=== PATIENT | male | born 1940 | race Caucasian/White ===

== ENCOUNTER 2017-03-13 08:18 | Day surgery (SDC) | payer MEDICARE ==
[~2017-03-13 08:18] MED LIST: Buffered Lidocaine 0.9% SYRIN* 5 ML/SYR SYRINGE INTRADERM ONE; Dexamethasone IV* 4 MG/ML 1 ML (4 MG) IV SLOW PU ONE; Famotidine IV* 10 MG/ML 2 ML (20 mg) IV ONE
[2017-03-13] MEDS ORDERED: Famotidine IV* 10 MG/ML 2 ML (20 mg) ONE (09:06)
[2017-03-13] MEDS ORDERED: Dexamethasone IV* 4 MG/ML 1 ML (4 MG) ONE (09:06)
[2017-03-13] MEDS ORDERED: EPINEPHrine AMP 1 MG/ML ONE (09:50)
[2017-03-13] MEDS ORDERED: Midazolam* 1 MG/ML 2 ML VIAL (2 MG) ONE (10:01)
[2017-03-13] MEDS ORDERED: fentaNYL* 50 MCG/ML 2 ML VIAL (100 MCG VIAL) ONE (10:01)
[2017-03-13] MEDS ORDERED: Propofol* 10 MG/ML 20 ML BTL IV PUSH ONE (10:34)
[2017-03-13] MEDS ORDERED: Ondansetron INJ* 2 MG/ML VIAL ONE (10:34)
[2017-03-13] MEDS ORDERED: fentaNYL* 50 MCG/ML 2 ML VIAL (100 MCG VIAL) IV PRN (10:50)
[2017-03-13 11:39] VITALS: BP 139/71
--- NOTE | 2017-03-13 20:30 | OP ---
OPERATIVE REPORT: DATE OF OPERATION: 03/13/17 - SDS DATE OF : 40 SURGEON: Bert Spencer MD MICROELECTRONICS TECHNICIAN: None. ANESTHESIOLOGIST: Gregg Murphy MD ANESTHESIA: General. PRE-OP DIAGNOSIS: Neoplasm, uncertain behavior, pharynx. POST-OP DIAGNOSIS: Neoplasm, uncertain behavior, pharynx. OPERATIVE PROCEDURE: Direct laryngoscopy with biopsies. 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 A couple of weeks ago, he developed a foreign body sensation in the left side of the throat. Inspection with a fiberoptic laryngoscope in the office demonstrated a lesion, which appeared to be in the left tongue base. Given his history, the decision was made to bring the patient to the operating room for biopsy. ESTIMATED BLOOD LOSS: Less than 10 cc. SPECIMEN: Biopsies, lateral wall of left piriform sinus. DESCRIPTION OF PROCEDURE: He was brought to the operating room on 03/13/17. General anesthesia was induced and an oral endotracheal tube was placed. The patient was draped. The table turned and a time-out was performed. The patient 's upper gums were protected with a moist Ray-Juan. A Adrianna laryngoscope was used to perform a diagnostic laryngoscopy. There was exudate covering a relatively flat ulcerative lesion of the left lateral hypopharyngeal wall, essentially at the superior portion of the piriform sinus. This was approximately 1.5 cm in greatest dimension. Two biopsies of this area were taken with a cup forceps. Epinephrine- soaked pledgets were then applied to control bleeding. Once the bleeding had stopped, the patient was returned to the care of the anesthesiologist. He was extubated and delivered to the PACU in stable condition. [id number]/CPS #: [id number] MTDD
== END 2017-03-13 11:35 | disposition home or self-care (01) ==
LOC: OR 08:18
PROVIDERS: ATTEND Otolaryngology
DX: C12 Malignant neoplasm of pyriform sinus (principal); I10 Essential (primary) hypertension; I35.9 Nonrheumatic aortic valve disorder, unspecified; E78.5 Hyperlipidemia, unspecified; N40.0 Benign prostatic hyperplasia without lower urinary tract symptoms; K21.9 Gastro-esophageal reflux disease without esophagitis; Z88.8 Allergy status to other drugs, medicaments and biological substances; Z87.891 Personal history of nicotine dependence
CPT/HCPCS: 88305; J0171; J1100; J2250; J2405; J2704; J3010

== ENCOUNTER → 2019-03-16 06:40 | Day surgery (SDC) | payer MEDICARE ==
[~2019-03-16 06:40] MED LIST changes: +Bacitracin OINTMENT* 0.5% 0.5 oz TUBE ONE; -Buffered Lidocaine 0.9% SYRIN* 5 ML/SYR SYRINGE INTRADERM ONE; +Bupivacaine 0.25% W/EPI* 10 ML SDV ONE; -Dexamethasone IV* 4 MG/ML 1 ML (4 MG) IV SLOW PU ONE; -Famotidine IV* 10 MG/ML 2 ML (20 mg) IV ONE; +Midazolam* 1 MG/ML 2 ML VIAL (2 MG) ONE; +Naloxone* 0.4 MG/ML 1 ML VIAL IV PRN; +Propofol* 10 MG/ML 20 ML BTL ONE; +fentaNYL* 50 MCG/ML 2 ML VIAL (100 MCG VIAL) ONE
[2019-03-16 10:30] VITALS: BP 141/92
--- NOTE | 2019-03-16 15:22 | OP ---
DATE OF OPERATION: 03/16/19 - [facility] DATE OF : 40 SURGEON: Bert Spencer MD DIRECTOR IMAGING: None. ANESTHESIA: Local MAC. PRE-OP DIAGNOSIS: Neoplasm, uncertain behavior of lower lip. POST-OP DIAGNOSIS: Malignant neoplasm, lower lip. OPERATIVE PROCEDURE: Wedge resection, lower lip lesion. INDICATIONS: This is a 78-year-old male who has had a nonhealing lesion of the lower lip for several years. It has been treated topically by Dermatology, although had never been biopsied. It had become larger and more painful and started to develop some central ulceration with raised borders. I saw him in the office and it was clear that this was behaving consistent with a neoplastic process, and so the decision was made to bring him to the operating room for conservative wedge excision and frozen section diagnosis and marginal control. DESCRIPTION OF PROCEDURE: On 03/16/19, the patient was brought to the operating room. The patient was given some intravenous sedation by the anesthesiologist. He was draped and a time out was performed. The skin of the lip itself was cleansed with alcohol, marked and approximately 3 cc of 0.25% Marcaine with 1:200,000 epinephrine was infiltrated into the lower lip. Once adequate time had been allotted for vasoconstriction, the procedure was begun. A wedge shaped through and through excisional specimen was obtained, 15-blade was used in addition to an iris scissors and a fine bipolar forceps. Labial artery was identified, ligated with 4- 0 silk. Hemostasis of the orbicularis muscle and other small bleeders was obtained with bipolar cautery. Once the specimen was removed, a marking suture was placed on the right vermilion border. The specimen itself was approximately 1.5 cm in width at the lip margin and extended inferiorly almost 2 cm to the apex of the wedge. The specimen was sent to pathology, while the frozen section was being run, the wound was then closed in layers, 3-0 Vicryl was used to reapproximate the muscle , 4-0 Vicryl was used to close dermis and submucosa. The mucosa on the inner aspect of the lip up to the vermilion was closed with 4-0 Vicryl and the skin was closed with 4-0 nylon. Bacitracin ointment was applied. The frozen section was consistent with squamous cell carcinoma with clear margins and the procedure was terminated. The patient was then returned to the PACU in stable condition. [id number]/[facility] #: [id number] ELHAM
== END | disposition home or self-care (01) ==
LOC: OR 06:40
PROVIDERS: ATTEND Otolaryngology
DX: C44.02 Squamous cell carcinoma of skin of lip (principal); I10 Essential (primary) hypertension; E78.5 Hyperlipidemia, unspecified; I35.8 Other nonrheumatic aortic valve disorders; R94.31 Abnormal electrocardiogram [ECG] [EKG]; K21.9 Gastro-esophageal reflux disease without esophagitis; J44.9 Chronic obstructive pulmonary disease, unspecified; Z87.891 Personal history of nicotine dependence
CPT/HCPCS: 88305; 88331; 88332; A9270-GY; J2250; J2704; J3010

== ENCOUNTER 2019-08-05 09:46 | Day surgery (SDC) | payer MEDICARE ==
[~2019-08-05 09:46] MED LIST changes: -Bacitracin OINTMENT* 0.5% 0.5 oz TUBE ONE; +Buffered Lidocaine 1% SYRIN 1 ml INTRADERM ONE; -Bupivacaine 0.25% W/EPI* 10 ML SDV ONE; +DiMENhydriNATE IV 50 mg/ml 1 ml VIAL IV PUSH PRN; +Famotidine IV 10 MG/ML 2 ml VIAL (20 mg) IV ONE; +HYDROmorphone 1 MG/1 ML SYRINGE IV PRN; +Lactated Ringers 1000 ml BAG 1,000 ML IV SCH; +Levalbuterol 0.63MG/3ML NEB UNIT OF USE INH ONE; +Levalbuterol 0.63MG/3ML NEB UNIT OF USE INH PRN; -Midazolam* 1 MG/ML 2 ML VIAL (2 MG) ONE; +Naloxone 0.4 mg VIAL 0.4 mg/ml 1 ml VIAL IV PRN; -Naloxone* 0.4 MG/ML 1 ML VIAL IV PRN; +Ondansetron ODT 4 mg TAB 4 MG TAB PO ONE; +Prochlorperazine 5 mg/ml 2 ml VIAL (10 mg) IV PRN; -Propofol* 10 MG/ML 20 ML BTL ONE; +fentaNYL 100 mcg/2 ml 50 MCG/ML VIAL IV PRN; -fentaNYL* 50 MCG/ML 2 ML VIAL (100 MCG VIAL) ONE
[2019-08-05] MEDS ORDERED: Ondansetron ODT 4 mg TAB 4 MG TAB ONE (10:33)
[2019-08-05] MEDS ORDERED: Levalbuterol 0.63MG/3ML NEB UNIT OF USE INH ONE ×2 (10:33→11:34)
[2019-08-05] MEDS ORDERED: Famotidine IV 10 MG/ML 2 ml VIAL (20 mg) ONE (10:34)
[2019-08-05] MEDS ORDERED: Buffered Lidocaine 1% SYRIN 1 ml INTRADERM ONE (10:34)
[2019-08-05] MEDS ORDERED: Oxymetazoline 0.05% NASAL SPR 15 ML BTL ONE (10:50)
[2019-08-05] MEDS ORDERED: Lidocaine 4% TOPICAL 50 ML TOP.SOLN ONE (10:50)
[2019-08-05] MEDS ORDERED: Ketamine HCL 50 mg/ml 10 ml VIAL (500 MG) ONE (10:52)
[2019-08-05] MEDS ORDERED: Rocuronium 50 mg VIAL 10 mg/ml 5 ml VIAL (50 mg) ONE (10:52)
[2019-08-05] MEDS ORDERED: fentaNYL 100 mcg/2 ml 50 MCG/ML VIAL ONE ×2 (10:52→12:19)
[2019-08-05] MEDS ORDERED: Midazolam 2 mg/2 ml VIAL 1 mg/ml 2 ml VIAL (2 mg) ONE (10:52)
[2019-08-05] MEDS ORDERED: Sugammadex 500 MG/5 ML 5 ml VIAL IV PUSH ONE (11:18)
[2019-08-05] MEDS ORDERED: Lidocaine 2% PF 5 ML VIAL ONE (11:18)
[2019-08-05] MEDS ORDERED: Propofol 10 MG/ML 20 ML BTL ONE (11:18)
[2019-08-05] MEDS ORDERED: Phenylephrine 40 mcg/mL 10mL (400mcg) SYRINGE ONE (11:18)
[2019-08-05] MEDS ORDERED: Labetalol IV 5 MG/ML 20 ml VIAL ONE (11:19)
[2019-08-05] MEDS ORDERED: Flumazenil 0.5 mg/5 ml 0.1 MG/ML 5 ml VIAL ONE (11:25)
[2019-08-05 12:28] VITALS: BP 176/98
[2019-09-06 13:21] LABS: Case Number CR-20-13117
== END 2019-08-05 13:01 | disposition home or self-care (01) ==
LOC: OR 09:46
PROVIDERS: ATTEND Otolaryngology
DX: C13.9 Malignant neoplasm of hypopharynx, unspecified (principal); C12 Malignant neoplasm of pyriform sinus; C00.4 Malignant neoplasm of lower lip, inner aspect; R07.0 Pain in throat; I10 Essential (primary) hypertension; K21.9 Gastro-esophageal reflux disease without esophagitis; E78.5 Hyperlipidemia, unspecified; M19.90 Unspecified osteoarthritis, unspecified site; J44.9 Chronic obstructive pulmonary disease, unspecified; Z85.828 Personal history of other malignant neoplasm of skin; Z87.891 Personal history of nicotine dependence

== ENCOUNTER 2019-09-02 10:07 | Emergency (ER) | payer MEDICARE ==
[2019-09-02] MEDS ORDERED: NS 0.9% 1000 ML** 1,000 ML IV ONE (10:09)
[2019-09-02 10:21] VITALS: BP 120/61
--- NOTE | 2019-09-02 10:25 | UC ---
Dizzy HPI HPI Summary: 79 yo man transferred from MRI department; had a syncopal episode after being taken out of the MRI. He had received gadolinium at 9:40 am with no immediate reaction. Elysian fine during the scan, then became syncopal when he sat out after coming out of the scanner at about 10 am. Nursing staff found him to be hypotensive. landscape management technician states that he felt fine after the gadolinium was given, and it was only upon coming to a seated position that he fainted. He denies a history of cardiac disease or faints. States that he was having the MRI for evaluation of dysphagia, and review of his chart shows that he is having an evaluation of a nodule. 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 - History Of Current Complaint Stated Complaint: DIZZY Time Seen by Provider: 09/02/19 10:09 Hx Obtained From: Patient Onset/Duration: Sudden Onset Timing: Intermittent Episode Lasting Severity Initially: Moderate Severity Currently: Moderate Character: Lightheaded, Weak Aggravating Factor(s): Position Change Alleviating Factor(s): Rest Associated Signs And Symptoms: Positive: Negative - Risk Factors Cardiac Risk Factors: Hypertension CVA Risk Factor: Hypertension - Allergies/Home Medications Allergies/Adverse Reactions: Allergies Allergy/AdvReac Type Severity Reaction Status Date / Time No Known Allergies Allergy Verified 09/02/19 10:12 Home Medications: Home Medications Amlodipine Besylate [Norvasc-] 10 mg PO QAM 07/30/16 [History Confirmed 08/05/19 ] Leflunomide (NF) [Arava] 20 mg PO QAM 07/30/16 [History Confirmed 08/05/19] Levothyroxine TAB* [Synthroid TAB*] 88 mcg PO QAM 07/30/16 [History Confirmed ] Mirtazapine TAB* [Remeron TAB*] 15 mg PO BEDTIME 07/30/16 [History Confirmed ] Telmisartan 80 mg PO QAM 07/30/16 [History Confirmed 08/05/19] Triamterene/HCTZ 37.5-25 MG* [Dyazide CAP*] 1 cap PO QAM 07/30/16 [History Confirmed 08/05/19] hydrALAZINE TAB* [Apresoline TAB*] 2 tab PO BID 07/30/16 [History Confirmed ] predniSONE 5 mg TAB [Deltasone TAB*] 5 mg PO BEDTIME 07/30/16 [History Confirmed 08/05/19] Atorvastatin* [Lipitor*] 40 mg PO QAM 03/13/17 [History Confirmed 08/05/19] Fexofenadine HCl [Allergy 24-Hr] 180 mg PO QAM 03/13/17 [History Confirmed 08/04] Metoprolol Tartrate TAB* [Lopressor TAB*] 100 mg PO BID 03/13/17 [History Confirmed 08/05/19] Omeprazole CAP (NF) [Prilosec CAP* 20 MG] 20 mg PO QAM 03/13/17 [History Confirmed 08/05/19] Tamsulosin CAP* [Flomax CAP*] 0.4 mg PO QPM 03/13/17 [History Confirmed 08/05/19 ] Tramadol HCl [Ultram] 50 mg PO QAM 03/13/17 [History Confirmed 08/05/19] PMH/Surg Hx/FS Hx/Imm Hx - Additional Past Medical History Additional PMH: former smoker Previously Healthy: No Cardiovascular History: Hypertension GI/ History: Other - BPH Neurological History: Other - Surgical History Surgical History: Yes Surgery Procedure, Year, and Place: THROAT BIOPSY - 5 YEARS AGO. REMOVAL CANCER FROM THE LIP-2019 - Family History Known Family History: Positive: Unknown - not obtained due to patient unwillingness to stay. - Social History Occupation: Employed Part-time - still drives for [employer] Alcohol Use: None Substance Use Type: None Smoking Status (MU): Former Smoker Amount Used/How Often: 1/2 PPD X 1.5 YEARS Length of Time of Smoking/Using Tobacco: 1.5 YEARS Have You Smoked in the Last Year: No When Did the Patient Quit Smoking/Using Tobacco: 60 YEARS AGO Review of Systems All Other Systems Reviewed And Are Negative: Yes Constitutional: Positive: Fatigue Skin: Positive: Negative Eyes: Positive: Negative ENT: Positive: Negative Respiratory: Positive: Negative Cardiovascular: Positive: Other - hx of hypertension Gastrointestinal: Positive: Negative Genitourinary: Positive: Negative Motor: Positive: Weakness Neurovascular: Positive: Negative Musculoskeletal: Positive: Negative Neurological/Mental Status: Positive: Weakness. Negative: Headache Psychological: Positive: Negative Is Patient Immunocompromised?: No Physical Exam Triage Information Reviewed: Yes Appearance: Ill-Appearing - looks pale and unwell, Other: - Alert and oriented. Eyes: Positive: Conjunctiva Clear ENT Exam: Other - tongue midline, husky voice. Neck: Positive: Supple, Nontender, No Lymphadenopathy Respiratory: Positive: Lungs clear, Normal breath sounds Cardiovascular: Positive: RRR, No Murmur Abdomen Description: Positive: Nontender, No Organomegaly Musculoskeletal Exam: Other - grossly normal Neurological Exam: Other - alert, oriented, no sided weakness Neurological: Positive: Muscle Tone Normal Psychological Exam: Other - vague historian, poor eye contact, repeatedly states that he has to leave. Skin Exam: Other - pale conjunctiva Diagnostics - EKG Cardiac Rate: NL Cardiac Rhythm: Sinus: Normal - prolonged pr interal Ectopy: None ST Segment: Normal Dizzy Course/Dx - Course Course Of Treatment: IV fluids initiated but then he insisted upon leaving. Advised unsafe to drive, and he has called a co-worker to drive him. I am concerned that he appears anemic. I had a call out for Concepcion Moraleshayde at [place], but did not get a response by the time he left. - Differential Dx/Diagnosis Differential Diagnosis/HQI/PQRI: Hypovolemia, Myocardial Infarction, Transient Ischemic Attack, Vasovagal Reaction Provider Diagnosis: Syncope Discharge ED - Sign-Out/Discharge Documenting (check all that apply): Patient Departure All imaging exams completed and their final reports reviewed: No Studies - Discharge Plan Condition: Guarded Disposition: AGAINST MEDICAL ADVICE Referrals: Yonny Cooper MD [Primary Care Provider] - - Billing Disposition and Condition Condition: GUARDED Disposition: Against Medical Advice
--- OUTSIDE RECORDS SUMMARY | 2019-09-02 10:39 | XMS REPORT | Continuity of Care Document ---
:1940 External Reference #:[id number] Author Name Bert Spencer M.D. (transmitted by agent of provider Yuliya Mckeon) Address [address] [place] [address] Care Team Providers Name Role Phone Pantera Vu MD - Internal Care Team Information Plating Engineer Medicine Jhon Ott MD - Gastroenterology Care Team Information Plating Engineer [phone] Bert Spencer MD - Otolaryngology Care Team Information Plating Engineer Mohinder Rome MD - Radiation Care Team Information Plating Engineer [phone] Oncology Sherie Cedillo PA-C - Physician Care Team Information Plating Engineer Pharmacy Sales Assistant Yonyn Cooper M.D. - Care Team Information Plating Engineer Internal Medicine Problems Active Problems Provider Date Electrocardiogram abnormal Yves Banks M.D. Onset: 07/25/2011 Benign essential hypertension Yves Banks M.D. Onset: 07/25/2011 Aortic valve disorder Yves Banks M.D. Onset: 07/25/2011 Hyperlipidemia Yves Banks M.D. Onset: 07/25/2011 Essential hypertension Yves Banks M.D. Onset: 07/10/2015 Neoplasm of uncertain behavior of skin Alberto Baldwin M.D. Onset: 2016 Social History Type Date Description Comments Sex Unknown Tobacco Use Start: Unknown Smoked 3-4 yrs , 1/2 pk Quit age 22Yrs daily ETOH Use No Etoh now Has had ETOh in the past 1 drink per day ETOH Use Rarely consumes alcohol Tobacco Use Start: Unknown End: Patient is a former Unknown smoker Recreational Drug Use Never Used Drugs Smoking Status Reviewed: 08/29/19 Patient is a former smoker Enjoy Exercising walks 1 1/2 miles up hill every day Exercise Type/Frequency Exercises regularly Allergies, Adverse Reactions, Alerts Active Allergies Reaction Severity Comments Date Ramipril 07/10/2015 Fenofibrate 07/10/2015 Inactive Allergies NKDA 09/14/2008 Medications Active Medications SIG Qnty Indications Ordering Date Provider Hydrocodone 15 milliliters by 420ml Bert Spencer, 08/08/2019 Bitartrate/Acetaminop mouth every 6 M.D. hen hours as needed 7.5-325mg/15ML for pain Solution Leflunomide Take 1 Tablet By 90tabs M05.79 Manuel Kohler, 06/09/2019 20mg Mouth Every Day M.D. Tablets (Your may start after you are finished with your antibiotic) Clotrimazole 1 lozenge 5 times 50units Bert Spencer, 06/06/2019 10mg daily for 10 days M.D. Lozenges Triamterene/Hydrochlo 1 po qd 90caps Qutaybzechariah SBebeto 08/28/2015 suzanna Banks M.D. 37.5-25mg Capsules Trazodone HCL 1 by mouth every Unknown 50mg day Tablets Vitamin D 1 by mouth every Unknown 1000Unit day Tablets Mirtazapine 1/2 by mouth daily Unknown 15mg Tablets Prednisone take 2 tablets by 180tabs M06.4 Manuel Kohler, 1mg Tablets mouth every day M.D. Atorvastatin Calcium take 1 tablet at Unknown bedtime 20mg Tablets Levothyroxine Sodium 1 by mouth every Unknown day 125mcg Tablets Metoprolol Tartrate take 1/4 tab daily Unknown 100mg Tablets Tramadol HCL 1 po bid Unknown 50mg Tablets Telmisartan 1/2 tablet daily Unknown 80mg Omeprazole 1 po bid 30caps Unknown 20mg Capsules DR Rosario Medications Amoxicillin/Clavulanate 1 by mouth 20tabs Bert 06/06/2019 - Potassium twice a day Mikala Spencer 08/07/2019 875-125mg Tablets Amoxicillin/Clavulanate 1 by mouth 20tabs Bert 05/02/2019 - Potassium twice a day Mikala Spencer 06/05/2019 875-125mg Tablets Leflunomide Take 1 90tabs M05.79 Manuel Kohler, 04/01/2019 - 20mg Tablets Tablet By Mikala 05/29/2019 Mouth Every Day Immunizations Description No Information Available Vital Signs Date Vital Result Comment 08/29/2019 10:40am Height 71 inches 5'11" Weight 170.38 lb Heart Rate 65 /min BP Systolic Sitting 122 mmHg BP Diastolic Sitting 74 mmHg Respiratory Rate 18 /min Pain Level 0 O2 % BldC Oximetry 95 % BMI (Body Mass Index) 23.8 kg/m2 08/08/2019 9:26am Height 71 inches 5'11" Weight 170.00 lb Heart Rate 66 /min BP Systolic Sitting 116 mmHg BP Diastolic Sitting 74 mmHg Body Temperature 97.8 F Pain Level 5 O2 % BldC Oximetry 96 % BMI (Body Mass Index) 23.7 kg/m2 Results Test Acquired Date Facility Test Result H/L Range Note Surgical 08/05/2019 [facility] Surgical SEE RESULT [address] [place] [address] [phone] PDFReport SEE IMAGE Laboratory test 03/16/2019 [facility] Surgical SEE RESULT [address] [address] [phone] 1 SEE RESULT BELOW Name: JOHNATHAN MATSON : [address]: Bert Spencer MD Acct: [id number] Unit: [id number] AGE: 79 Location: OR Re08/05/19 SEX: M Status: [facility]LL[facility] SPEC: [id number] MARVIN: 08/05/19- SUBM DR: Bert Spencer MD REQ: [id number] RECD: 08/05/19-1221 STATUS: SOUT _ ORDERED: [facility], LEVEL 4, IMMUNO-FIRST, IMMUNO-ADDL/15, IMMUNO-QUANT, SPEC STAIN ORG/2, IHC TECH, ADD, IHC TECH, 1ST ADDENDUM Additional immunohistochemical stains, with appropriately reacting controls, were performed for CD1a and Langerin and are negative. The previously rendered diagnosis remains unchanged. Addendum Signed (signature on file) Anastasia Garcia MD 1318 FINAL DIAGNOSIS Laryngeal surface of epiglottis, biopsies: -- Epithelioid hemangioendothelioma; see comment. COMMENT: Sections show focally ulcerated squamous mucosa with a fibrotic lamina propria and an infiltrate of small reniform cells with ample cytoplasm that are cytologically bland and demonstrate no significant mitotic activity or necrosis. The cells are positive for vascular markers, supporting the diagnosis. Dr. Malave reviewed this case in intradepartmental consultation and agrees with the diagnosis. Given the unusual nature of this infiltrate, this case will be sent for expert diagnostic opinion to [facility] CONTINUED ON NEXT PAGE DEPARTMENT OF PATHOLOGY, [address] [place] [address] Mookie Malave M.D. Director [facility] # [id number] laboratories. The loss prevention consultant findings will be reported verbatim in an addendum. PRE-OPERATIVE DIAGNOSIS Pain in throat, malignant neoplasm of hypopharynx, malignant neoplasm of lower lip inner aspect GROSS DESCRIPTION The specimen is received in formalin labeled, Biopsies of Laryngeal Surface of Epiglottis, and consists of a 1.4 x 1.0 x 0.2 cm aggregate of white-pink irregular soft tissue fragments and red-brown blood clot. Entirely submitted, one cassette. MICROSCOPIC DESCRIPTION Histologic sections show fragments of squamous mucosa with focal ulceration and a lymphocytic infiltrate in the fibrotic lamina propria. In one of the fragments, an unusual infiltrate is present in the lamina propria composed of reniform cells with small centrally located nucleoli and abundant cytoplasm. Some of the cells are arranged in nests and others are individual. Some of the cells are arranged in an annular configuration with red blood cells in the lumenal surface. Special and immunohistochemical stains, with appropriately reacting controls, were performed with the following results: GMS negative for fungal organisms. PAS negative for fungal organisms. Melan-A negative SOX 10 negative S100 negative HMB-45 negative CK 5/6 negative P63 negative CD34 focally positive CK7 negative CK20 negative CD45 negative CD68 negative P16 positive CD31 focally positive Vimentin positive SMA negative Pankeratin negative Ki67 proliferation index approximately 5%, quantitated manually CONTINUED ON NEXT PAGE DEPARTMENT OF PATHOLOGY, [address] [place] [address] Mookie Malave M.D. Director [facility] # [id number] Signed by and Reported on: Anastasia Garcia MD 08/16/19 1303 END OF REPORT DEPARTMENT OF PATHOLOGY, [address] [place] [address] Mookie Malave M.D. Director [facility] # [id number] 2 SEE RESULT BELOW Name: JOHNATHAN MATSON : [address]: Bert Spencer MD Acct: [id number] Unit: [id number] AGE: 78 Location: OR Re03/16/19 SEX: M Status: REG [facility] SPEC: [id number] MARVIN: 03/16/[address]: Bert Spencer MD REQ: [id number] RECD: 03/16/19 STATUS: SOUT _ ORDERED: FS 1ST PER SPEC, FS ADD PER SPEC/2, LEVEL 4 FINAL DIAGNOSIS Skin, lower lip, wedge excision: -- Invasive well-differentiated squamous cell carcinoma. -- Carcinoma involves sub-epithelial skeletal muscle. -- Deep, tip, and lateral margins of resection are clear PATHOLOGY SURGICAL CONSULT Frozen section (FS)/Touch Prep (TP)/Gross Consult (GC) FS) Skin, lower lip wedge, excision: a. Invasive squamous cell carcinoma, well-differentiated. (EP) b. All margins are clear. (EP) Findings discussed with Dr. Spencer on 03/16/2019 at 0949. PRE-OPERATIVE DIAGNOSIS Neoplasm of uncertain behaviors of lip, stitch guzman right vermilion margin GROSS DESCRIPTION The specimen is received fresh labeled, Lower Lip Wedge Excision, Stitch Guzman Right Vermilion Margin, and consists of a 1.5 x 1.3 cm valderrama-pink hairbearing triangular skin wedge excised to a depth of 1.0 cm with a central 0.7 x 0.7 by up to 0.2 cm valderrama- red focally ulcerated area. There is an attached suture which designates the right vermilion margin. The specimen is inked as follows: right vermilion margin-black, left-blue and skin tip-green, serially sectioned from skin to oral mucosa and entirely submitted for frozen section microscopy. The frozen section residue is submitted in cassettes FSA through [facility] to include ends in cassette FSA. CONTINUED ON NEXT PAGE DEPARTMENT OF PATHOLOGY, [address] [place] [address] Mookie Malave M.D. Director [facility] # [id number] Signed by and Reported on: Mookie Malave MD 1353 END OF REPORT DEPARTMENT OF PATHOLOGY, [address] [place] [address] Mookie Malave M.D. Director [facility] # [id number] Procedures Date Code Description Status 08/29/2019 59613 Fibroptic Laryngoscopy Completed 08/05/2019 92268 Laryngoscopy W/Biopsy, Micro Completed 08/01/2019 89848 Fibroptic Laryngoscopy Completed 06/06/2019 15834 Fibroptic Laryngoscopy Completed 05/02/2019 82824 Fibroptic Laryngoscopy Completed 03/16/2019 13083 Excision Lip Transverse Wedge Excision W/Primary Closure Completed Medical Devices Description No Information Available Encounters Type Date Location Provider Dx Diagnosis Office Visit 08/08/2019 [facility], R07.0 Pain in throat 9:30a [facility] [place] Jamia.Smiley R13.10 Dysphagia, unspecified Office Visit 08/01/2019 3:00p [facility], C12 Malignant [facility] 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 08/29/2019 R07.0 Pain in throat Bert Spencer M.D. 08/29/2019 R13.10 Dysphagia, unspecified Bert Spencer M.D. 08/08/2019 R07.0 Pain in throat Bert Spencer M.D. 08/08/2019 R13.10 Dysphagia, unspecified Bert Spencer M.D. 08/05/2019 D18.01 Hemangioma of skin and subcutaneous tissue Bert Spencer M.D. 08/01/2019 C12 Malignant neoplasm of pyriform sinus Bert Spencer M.D. 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 08/01/2019 R07.0 Pain in throat Bert Spencer M.D. 06/09/2019 M06.09 Rheumatoid arthritis without rheumatoid Manuel Kohler M.D. factor, multiple sites 06/09/2019 Z79.899 Other watermelon inspector (current) drug therapy Manuel Kohler M.D. 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 06/09/2019 E55.9 Vitamin D deficiency, unspecified Manuel Kohler M.D. 06/06/2019 R07.0 Pain in throat Bert Spencer M.D. 06/06/2019 C00.9 Malignant neoplasm of lip, unspecified Bert Spencer M.D. 06/06/2019 C12 Malignant neoplasm of pyriform sinus Bert Spencer M.D. 06/06/2019 C13.9 Malignant neoplasm of hypopharynx, Bert Spencer M.D. unspecified 05/02/2019 R07.0 Pain in throat Bert Spencer M.D. 05/02/2019 C00.9 Malignant neoplasm of lip, unspecified Bert Spencer M.D. 05/02/2019 C12 Malignant neoplasm of pyriform sinus Bert Spencer M.D. 05/02/2019 C13.9 Malignant neoplasm of hypopharynx, Bert Spencer M.D. unspecified 03/28/2019 C00.9 Malignant neoplasm of lip, unspecified Bert Spencer M.D. 03/21/2019 C00.9 Malignant neoplasm of lip, unspecified Bert Spencer M.D. 03/16/2019 C00.4 Malignant neoplasm of lower lip, inner aspect Bert Spencer M.D. Plan of Treatment Future Appointment(s):09/14/2019 9:40 am - Manuel Kohler M.D. at [facility]08/29/2019 - Bert Spencer M.D.D38.0 Neoplasm of uncertain behavior of jsmjueN98.0 Pain in pkswqoV54.10 Dysphagia, unspecified Functional Status Description No Information Available Mental Status Description No Information Available Referrals Refer to Dr Reason for Referral Status Appt Date Ruddy Rodriguez M.D. neoplasm of the larynx, uncertain Created behavior [address] [place] [address] [phone]
--- OUTSIDE RECORDS SUMMARY | 2019-09-02 10:39 | XMS REPORT | Continuity of Care Document ---
:1940 External Reference #:[id number] Author Name Bert Spencer M.D. (transmitted by agent of provider Evangelina Jean) Address [address] [place] [address] Care Team Providers Name Role Phone Pantera Vu MD - Internal Care Team Information Planer Operator / Grader [phone] Medicine Jhon Ott MD - Gastroenterology Care Team Information Planer Operator / Grader Bert Spencer MD - Otolaryngology Care Team Information Planer Operator / Grader [phone] Mohinder Rome MD - Radiation Care Team Information Planer Operator / Grader Oncology Sherie Cedillo PA-C - Physician Care Team Information Planer Operator / Grader [phone] Division Superintendent Yonny Cooper M.D. - Care Team Information Planer Operator / Grader Internal Medicine Problems Active Problems Provider Date [...] Use Never Used Drugs Smoking Status Reviewed: 08/08/19 Patient is a former smoker Enjoy Exercising walks 1 1/2 miles up hill every day Exercise Type/Frequency Exercises regularly Allergies, Adverse Reactions, Alerts Active Allergies Reaction Severity Comments Date Ramipril 07/10/2015 Fenofibrate 07/10/2015 Inactive Allergies NKDA 09/14/2008 Medications Active Medications SIG Qnty Indications Ordering Date Provider Leflunomide Take 1 Tablet By 90tabs M05.79 Manuel Kohler, 06/09/2019 20mg Tablets Mouth Every Day M.D. (Your may start after you are finished with your antibiotic) Clotrimazole 1 lozenge 5 50units Bert Spencer, 06/06/2019 10mg times daily for M.D. Lozenges 10 days Triamterene/Hydrochlor 1 po qd 90caps Qutaybeh S. 08/28/2015 othikeri Banks M.D. 37.5-25mg Capsules Omeprazole 1 po bid 30caps Unknown 20mg Capsules DR Bloom 1/2 tablet daily Unknown 80mg Tramadol HCL 1 po bid Unknown 50mg Tablets Metoprolol Tartrate take 1/4 tab Unknown 100mg daily Tablets Levothyroxine Sodium 1 by mouth every Unknown day 125mcg Tablets Atorvastatin Calcium take 1 tablet at Unknown 20mg bedtime Tablets Prednisone take 2 tablets 180tabs M06.4 Manuel Kohler, 1mg Tablets by mouth every M.D. day Mirtazapine 1/2 by mouth Unknown 15mg Tablets daily Vitamin D 1 by mouth every Unknown 1000Unit day Tablets Trazodone HCL 1 by mouth every Unknown 50mg day Tablets History Medications Amoxicillin/Clavulanate 1 by mouth 20tabs Bert 06/06/2019 - Potassium twice a day Mikala Spencer 08/07/2019 875-125mg Tablets Amoxicillin/Clavulanate 1 by mouth 20tabs Bert 05/02/2019 - Potassium twice a day Mikala Spencer 06/05/2019 875-125mg Tablets Leflunomide Take 1 90tabs M05.79 Manuel Medinar, 04/01/2019 - 20mg Tablets Tablet By MTamiko 05/29/2019 Mouth Every Day Immunizations Description No Information Available Vital Signs Date Vital Result Comment 08/08/2019 9:26am Height 71 inches 5'11" Weight 170.00 lb Heart Rate 66 /min BP Systolic Sitting 116 mmHg BP Diastolic Sitting 74 mmHg Body Temperature 97.8 F Pain Level 5 O2 % BldC Oximetry 96 % BMI (Body Mass Index) 23.7 kg/m2 08/01/2019 2:47pm Heart Rate 77 /min BP Systolic Sitting 140 mmHg BP Diastolic Sitting 72 mmHg Respiratory Rate 16 /min Results Test Acquired Date Facility Test Result H/L Range Note Laboratory test 03/16/2019 [facility] Surgical SEE RESULT [address] Pathology BELOW [place] [id number] [phone] 1 SEE RESULT BELOW Name: JOHNATHAN MATSON : [address]: Bert Spencer MD Acct: [id number] Unit: [id number] AGE: 78 Location: OR Re03/16/19 SEX: M Status: [facility] SPEC: [id number] MARVIN: 03/16/19 [facility] [address]: Bert Spencer MD REQ: [id number] RECD: 03/16/19 STATUS: SOUT _ ORDERED: FS [...] Neoplasm of uncertain behaviors of lip, stitch adams right vermilion margin GROSS DESCRIPTION The specimen is received fresh labeled, Lower Lip Wedge Excision, Stitch Adams Right Vermilion Margin, and consists of a [...] CONTINUED ON NEXT PAGE DEPARTMENT OF PATHOLOGY, [address] [place] [address] Mookie Malave M.D. Director [facility] # [id number] Signed by and Reported on: Mookie Malave MD 1353 END OF REPORT DEPARTMENT OF PATHOLOGY, [address] [place] [address] Mookie Malave M.D. 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 AT M.D. uncertain Grant behavior of lip Assessments Date Code Description Provider 08/01/2019 C12 Malignant neoplasm of pyriform sinus Bert Spencer M.D. 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 08/01/2019 R07.0 Pain in throat Bert Spencer M.D. 06/09/2019 M06.09 Rheumatoid arthritis without rheumatoid Manuel Kohler M.D. factor, multiple sites 06/09/2019 Z79.899 Other jail (current) drug therapy Manuel Kohler M.D. 06/09/2019 [...] lower lip, inner aspect Bert Spencer M.D. 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 Plan of Treatment Future Appointment(s):08/15/2019 11:00 am - Bert Spencer M.D. at [facility]09/14/2019 9:40 am - Manuel Kohler M.D. at [facility]08/08/2019 - Bert Spencer M.D.R07.0 Pain in sghhiqR99.10 Dysphagia, unspecified Functional Status Description No Information Available Mental Status Description No Information Available Referrals Description No Information Available
--- OUTSIDE RECORDS SUMMARY | 2019-09-02 10:39 | XMS REPORT | Continuity of Care Document ---
:1940 External Reference #:[id number] Author Name Bert Spencer M.D. (transmitted by agent of provider Ronaldo Bonner) Address [facility] [place] [address] Care Team Providers Name Role Phone Pantera Vu MD - Internal Care Team Information Registration Manager Medicine Jhon Ott MD - Gastroenterology Care Team Information Registration Manager Bert Spencer MD - Otolaryngology Care Team Information Registration Manager [phone] Mohinder Rome MD - Radiation Care Team Information Registration Manager Oncology Sherie Cedillo PA-C - Physician Care Team Information Registration Manager Suction Dredge Dumping Supervisor Eliza Mcghee MD - Internal Medicine Care Team Information Registration Manager Problems Active Problems Provider Date Electrocardiogram abnormal [...] Use Never Used Drugs Smoking Status Reviewed: 06/09/19 Patient is a former smoker Enjoy Exercising [...] after you are finished with your antibiotic) Amoxicillin/Clavulanat 1 by mouth twice 20tabs Bert Spencer, 06/06/2019 e Potassium a day M.D. 875-125mg Tablets Clotrimazole 1 lozenge 5 50units Bert Spencer, 06/06/2019 10mg times daily for M.D. Lozenges 10 days Triamterene/Hydrochlor 1 po qd 90caps Qutaybeh S. 08/28/2015 othiazide Mikala Banks 37.5-25mg Capsules Trazodone HCL 1 by mouth every Unknown 50mg day Tablets Vitamin D 1 by mouth every Unknown 1000Unit day Tablets Mirtazapine 1/2 by mouth Unknown 15mg Tablets daily Prednisone take 2 tablets 180tabs M06.4 Manuel Kohler, 1mg Tablets by mouth every M.D. day Colace 1 by mouth Unknown 100mg Capsules daily Atorvastatin Calcium take 1 tablet at Unknown 20mg bedtime Tablets Levothyroxine Sodium 1 by mouth every Unknown day 125mcg Tablets Metoprolol Tartrate take 1/4 tab Unknown 100mg daily Tablets Tramadol HCL 1 po bid Unknown 50mg Tablets Telmisartan 1/2 tablet daily Unknown 80mg Omeprazole 1 po bid 30caps Unknown [address]mg Capsules DR Sanchez 1 po qd Unknown 99mg Tablets History Medications Amoxicillin/Clavulanate 1 by mouth 20tabs Bert 05/02/2019 - Potassium twice a day Mikala Spencer 06/05/2019 875-125mg Tablets Leflunomide Take 1 90tabs M05.79 Manuel Simondor, 04/01/2019 - 20mg Tablets Tablet By Mikala 05/29/2019 Mouth Every Day Immunizations Description No Information Available Vital Signs Date Vital Result Comment 08/01/2019 2:47pm Heart Rate 77 /min BP Systolic Sitting 140 mmHg BP Diastolic Sitting 72 mmHg Respiratory Rate 16 /min 06/09/2019 8:31am Height 71 inches 5'11" Weight 175.00 lb Heart Rate 64 /min BP Systolic Sitting 116 mmHg BP Diastolic Sitting 60 mmHg Body Temperature 97.6 F Pain Level 0 BMI (Body Mass Index) 24.4 kg/m2 Results Test Acquired Date Facility Test Result H/L Range Note Laboratory test 03/16/2019 [facility] Surgical SEE RESULT [address] Pathology BELOW [place] [id number] [phone] 1 SEE RESULT BELOW Name: JOHNATHAN MATSON : [address]: Bert Spencer MD Acct: [id number] Unit: [id number] AGE: 78 Location: OR Re03/16/19 SEX: M Status: REG [facility] SPEC: [id number] MARVIN: 03/16/[address] [facility] [address]: Bert Spencer MD REQ: [id number] RECD: 03/16/19 STATUS: SOUT _ ORDERED: FS [...] CONTINUED ON NEXT PAGE DEPARTMENT OF PATHOLOGY, [address] [place] [address] Mookie Malave M.D. Director [facility] # [id number] Signed by and Reported on: Mookie Malave MD 1353 END OF REPORT DEPARTMENT OF PATHOLOGY, [address] [place] [address] Mookie Malave M.D. 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 AT M.D. uncertain [place] behavior of lip Assessments Date Code Description Provider 06/09/2019 M06.09 Rheumatoid arthritis without rheumatoid Manuel Kohler M.D. factor, multiple sites 06/09/2019 Z79.899 Other assisted (current) drug therapy Manuel Kohler M.D. 06/09/2019 [...] - Manuel Kohler M.D. at [facility]08/08/2019 9:30 am - Bert Spencer M.D. at [facility] Rvjlqekd61/19/2019 - Manuel Kohler M.D.M06.09 Rheumatoid arthritis without rheumatoid factor, multiple kkazmU86.899 Other assisted (current) drug bccuvlcA14.049 Primary osteoarthritis, unspecified handE55.9 Vitamin D deficiency, unspecifiedFollow up:Follow up in 3 months or sooner if needed Functional Status Description No Information Available Mental Status Description No Information Available Referrals Description No Information Available
--- OUTSIDE RECORDS SUMMARY | 2019-09-02 10:39 | XMS REPORT | Continuity of Care Document ---
:1940 External Reference #:[id number] Author Name Bert Spencer M.D. (transmitted by agent of provider Halima Hardwick) Address [address] [place] [address] Care Team Providers Name Role Phone Pantera Vu MD - Internal Care Team Information Environmental Services Coordinator Medicine Jhon Ott MD - Gastroenterology Care Team Information Environmental Services Coordinator Bert Spencer MD - Otolaryngology Care Team Information Environmental Services Coordinator Mohinder Rome MD - Radiation Care Team Information Environmental Services Coordinator [phone] Oncology Sherie Cedillo PA-C - Physician Care Team Information Environmental Services Coordinator [phone] Marketing Database Analyst Yonny Cooper M.D. - Care Team Information Environmental Services Coordinator [phone] Internal Medicine Problems Active Problems Provider Date [...] M.D. Lozenges Triamterene/Hydrochlo 1 po qd 90caps Magentakulwant S. 08/28/2015 suzanna Banks M.D. 37.5-25mg Capsules Trazodone [...] Test Result H/L Range Note Surgical 08/05/2019 [facility] Surgical SEE RESULT [address] [place] [address] [phone] PDFReport SEE IMAGE Laboratory test 03/16/2019 [facility] Surgical SEE RESULT [address] [place] [address] [phone] 1 SEE RESULT BELOW Name: JOHNATHAN MATSON : [address]: Bert Spencer MD Acct: [id number] Unit: [id number] AGE: 79 Location: OR Re08/05/19 SEX: M Status: [facility] SPEC: [id number] MARVIN: 08/05/19- SUBM DR: Bert Spencer MD REQ: [id number] RECD: 08/05/19-1221 STATUS: SOUT _ ORDERED: [facility], LEVEL 4, IMMUNO-FIRST, IMMUNO-ADDL/15, IMMUNO-QUANT, SPEC [...] be sent for expert diagnostic opinion to [facility] CONTINUED ON NEXT PAGE DEPARTMENT OF PATHOLOGY, [address] [place] [address] Mookie Malave M.D. Director [facility] # [id number] laboratories. The career development consultant findings will be reported verbatim in [...] CONTINUED ON NEXT PAGE DEPARTMENT OF PATHOLOGY, [address] [place] [address] Mookie Malave M.D. Director [facility] # [id number] Signed by and Reported on: Anastasia Garcia MD 08/16/19 1303 END OF REPORT DEPARTMENT OF PATHOLOGY, [address] [place] [address] Mookie Malave M.D. Director [facility] # [id number] 2 SEE RESULT BELOW Name: JOHNATHAN MATSON : [address]: Bert Spencer MD Acct: [id number] Unit: [id number] AGE: 78 Location: OR Re03/16/19 SEX: M Status: [facility] SPEC: [id number] MARVIN: 03/16/[address]: Bert Spencer MD REQ: [id number] RECD: 03/16/19 STATUS: SOUT _ ORDERED: FS [...] CONTINUED ON NEXT PAGE DEPARTMENT OF PATHOLOGY, [address] [place] [address] Mookie Malave M.D. Director [facility] # [id number] Signed by and Reported on: Mookie Malave MD 1353 END OF REPORT DEPARTMENT OF PATHOLOGY, [address] [place] [address] Mookie Malave M.D. Director [facility] # [id number] Procedures Date Code Description Status 08/29/2019 93352 Fibroptic Laryngoscopy Completed 08/05/2019 17673 Laryngoscopy W/Biopsy, Micro Completed 08/01/2019 55320 Fibroptic Laryngoscopy Completed 06/06/2019 12694 Fibroptic Laryngoscopy Completed 05/02/2019 16532 Fibroptic Laryngoscopy Completed 03/16/2019 70255 Excision Lip Transverse Wedge Excision W/Primary Closure Completed Medical Devices Description No Information Available Encounters Type Date Location Provider Dx Diagnosis Office Visit 08/08/2019 [facility] Spencer, R07.0 Pain in throat 9:30a C.M.A. AT [place]ia.Smiley R13.10 Dysphagia, unspecified Office Visit 08/01/2019 3:00p [facility] Bert Spencer, C12 Malignant C.M.A. 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 arthritis w/o rheumatoid factor, multiple sites Z79.899 Other chcf (current) drug therapy M19.049 Primary osteoarthritis, unspecified [...] M.D. factor, multiple sites 06/09/2019 Z79.899 Other ocean transportation intermediary (current) drug therapy Manuel Kohler M.D. 06/09/2019 [...] Manuel Kohler M.D. at [facility]08/29/2019 - Bert Spencer M.D.D38.0 Neoplasm of uncertain behavior of ecvlgrR54.0 Pain in uemoxvY22.10 Dysphagia, unspecified Functional Status Description No Information Available Mental Status Description No Information Available Referrals Refer to Dr Reason for Referral Status Appt Date Ruddy Rodriguez M.D. neoplasm of the larynx, uncertain Created behavior [address] [place] [address] [phone]
--- OUTSIDE RECORDS SUMMARY | 2019-09-02 10:39 | XMS REPORT | Continuity of Care Document ---
:1940 External Reference #:[id number] Author Name Robel Poe PA (transmitted by agent of provider Venus Diallo) Address [address], [address] [place] [address] Care Team Providers Name Role Phone Mitch Aranda MD - Surgery Care Team Information Mortgage Or Loan Underwriter [phone] Oj Burgos MD - Rheumatology Care Team Information Mortgage Or Loan Underwriter Stoney Rodriguez MD - Ophthalmology Care Team Information Mortgage Or Loan Underwriter Dago Hansen M.D. - Adult Care Team Information Mortgage Or Loan Underwriter [phone] Reconstructive Orthopaedic Surgery Casimiro Diego MD - Orthopaedic Care Team Information Mortgage Or Loan Underwriter Surgery Preeti Napoles NP, CNM - Nurse Care Team Information Mortgage Or Loan Underwriter Practitioner Berkley Moss DO - Emergency Medicine Care Team Information Mortgage Or Loan Underwriter [phone] Bert Spencer ENT Care Team Information Mortgage Or Loan Underwriter [phone] Problems Active Problems Provider Date Gastroesophageal reflux disease Jhon Ott MD Onset: 06/26/2015 Note: upper to D3 Bx 2015 Degenerative joint disease involving multiple Jhon Ott MD Onset: 2015 joints Adult health examination Jhon Ott MD Onset: 06/26/2015 Note: Next tdaP 2024. Abdominal sonogram 2009. + OLVIN (homogeneous pattern) December 2015. SPEP neg Jan 2016. AWV Dec 2014. Leukemia/lymphoma flow profile WNL Apr 2016. CT brain Jul 2016. 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 Spencer Benign prostatic hyperplasia Jhon Ott MD Onset: 06/26/2015 Allergic rhinitis Jhon Ott MD Onset: 06/26/2015 Dyslipidemia Jhon Ott MD Onset: 06/26/2015 Note: Feb 2016 hypertrig LDL 78 HDL 51 Chol 187 The LDL goal is <100 (CKD) Diverticular disease of colon Jhon Ott MD Onset: 06/26/2015 Aortic aneurysm Sherie Cedillo PA-C Onset: 09/03/2015 Note: Dr. Bnaks (cardiology, [place]) Echo 2016 Chronic kidney disease Sherie Cedillo PA-C Onset: 01/28/2016 Note: Jan 2016 cr 1.4 eGFR 53 Anemia of chronic disease Jhon Ott MD Onset: 02/01/2016 Note: Jan 2016 ferritin 295 Hypothyroidism Jhon Ott MD Onset: 02/01/2016 Note: Jan 2016 TSH 46 Rheumatoid arthritis Sherie Cedillo PA-C Onset: 02/04/2016 Note: Dr. Rizo Spinal stenosis Sherie Cedillo PA-C Onset: 06/04/2016 Hemorrhage of rectum and anus Igor Chiu MD Onset: 09/05/2016 Heartburn Igor Chiu MD Onset: 09/05/2016 Other specified diseases of anus and Igor Chiu MD Onset: 06/12/2017 rectum Neck pain Eliza Mcghee MD Onset: 07/23/2017 Shoulder joint pain Eliza Mcghee MD Onset: 07/23/2017 Neoplasm of uncertain behavior of lip, Eliza Mcghee MD Onset: 09/02/2017 oral cavity and pharynx Mixed hyperlipidemia Eliza Mcghee MD Onset: 09/02/2017 [facility]on [facility]: 10/14/2017 Spinal stenosis of lumbar region Seven Ramirez M.D. Onset: 12/15/2017 Electrocardiogram abnormal Russel Bennett M.D., Onset: 12/22/2018 [facility] Dizziness and giddiness Russel Bennett M.D., Onset: 12/22/2018 [facility] Tobacco user Russel Bennett M.D., Onset: 12/22/2018 [facility] Aneurysm of thoracic aorta Russel Bennett M.D., Onset: 12/22/2018 [facility] Other specified symptoms and signs Russel Bennett M.D., Onset: 2018 involving the circulatory and [facility] respiratory systems Social History Type Date Description Comments Sex Unknown Tobacco Use Start: Unknown Never Smoked Cigarettes ETOH Use Denies alcohol use Tobacco Use Start: Unknown End: Unknown Patient is a former smoker Smoking Status Reviewed: 08/25/19 Patient is a former smoker Allergies, Adverse Reactions, Alerts Active Allergies Reaction Severity Comments Date Ramipril cough Mild 07/21/2013 Fenofibrate 07/21/2013 Trazodone dizziness Moderate 10/04/2015 Medications Active Medications SIG Qnty Indications Ordering Date Provider Omeprazole Take 1 Capsule By 90caps R13.10 Ali, 40mg Capsules DR Mouth Every Day 30 MD Avery 0 Minutes Before Morning Meal Hydrochlorothiazide 1 by mouth every 90tabs I10 Ratnasingam, 25mg day MD Yonny 9 Tablets Lidocaine apply twice a day 21gm K62.89 Litzy, HCL/Hydrocortisone to hemorrhoids; MD Eliza 7 Acetate may use applicator 3-0.5% Cream to apply to anal canal as needed Levothyroxine Sodium 1tab by mouth 90tabs Litzy, 125mcg every day MD Eliza 7 Tablets Metoprolol Tartrate 1 by mouth twice a 180tabs I10 Ratnasingam, 100mg day MD Yonny 0 Tablets Tramadol HCL 2 tabs by mouth 240tabs Ratnasingam, 50mg Tablets every 6 hours as MD Yonny 0 needed for pain, mdd 8#, Reference # [id number] Mirtazapine take 1/2 tablet by 90tabs Ratnasingam, 15mg Tablets mouth once nightly MD Yonny 0 for insomnia Vitamin D 1 by mouth every Litzy, 1000Unit Tablets day MD Eliza 0 Telmisartan take one tab by 90tabs Ratnasingam, 80mg Tablets mouth once a day MD Yonny 0 Prednisone take 2tabs by Unknown 1mg Tablets mouth once a day 0 Leflunomide 1 by mouth every Unknown 20mg Tablets day 0 Stool Softener take one capsule Unknown 100mg Capsules by mouth twice a 0 day as needed for constipation Clotrimazole Unknown 10mg Lozenges 0 History Medications Cialis take one tablet 30tabs Eliza Mcghee MD 05/09/2019 - 5mg before sexual 06/13/2019 Tablets activity. effect may last up to 36 hr. Immunizations CPT Code Status Date Vaccine Lot # 58615 Given 03/22/2018 Influenza High Dose Q2038 Given 03/20/2016 Influenza Vaccine (Fluzone) Age 3 And Older 24666 Given 06/26/2015 Pneumococcal Conjugate Vaccine 13 Valent For [id number] Intramuscular Use 43793 Given 03/19/2015 Influenza High Dose 81753 Given 11/25/2014 Tdap injection [id number] U-Pneum Given 01/24/2014 Pneumococcal,Unspecified U-Pneum Given 06/22/2005 Pneumococcal,Unspecified U-Td Given 06/22/2004 Td(Adult),Unspecified Vital Signs Date Vital Result Comment 08/25/2019 8:38am BP Systolic Sitting Left Arm 138 mmHg BP Diastolic Sitting Left Arm 81 mmHg Body Temperature 97.0 F Heart Rate 65 /min Respiratory Rate 16 /min Height 71 inches 5'11" Weight 172.00 lb Pain Level 0 BMI (Body Mass Index) 24.0 kg/m2 BSA (Body Surface Area) 1.98 m2 [place] body weight in kilograms 78 kg O2 % BldC Oximetry 96 % 08/03/2019 10:33am BP Systolic Sitting Left Arm 118 mmHg BP Diastolic Sitting Left Arm 70 mmHg Body Temperature 98.6 F Heart Rate 72 /min Respiratory Rate 24 /min Height 71 inches 5'11" Weight 170.00 lb BMI (Body Mass Index) 23.7 kg/m2 BSA (Body Surface Area) 1.97 m2 [place] body weight in kilograms 78 kg O2 % BldC Oximetry 98 % ra Results Test Acquired Facility Test Result H/L Range Note Date Creat 07/06/2019 N2N/CCD Import Creatinine 1.4 High 0.6-1.3 SerPl-mCnc GFR/Bsa 07/06/2019 N2N/CCD Import Estimated GFR 52 >60 pred.non (Non- black SerPl Swiss MDRD-ArVRat GFR/Bsa 07/06/2019 N2N/CCD Import Estimated GFR >60 >60 pred.black () SerPl MDRD-ArVRat BUN/Creat 07/06/2019 N2N/CCD Import BUN/Creatinine 13.5 SerPl Ratio Sodium 07/06/2019 N2N/CCD Import Sodium Level 134 Low 136-145 SerPl-sCnc Potassium 07/06/2019 N2N/CCD Import Potassium Level 3.5 3.5-5.1 SerPl-sCnc Chloride 07/06/2019 N2N/CCD Import Chloride Level 101 98-107 SerPl-sCnc Co2 07/06/2019 N2N/CCD Import Carbon Dioxide 29 21-32 SerPl-sCnc Level Anion Gap 07/06/2019 N2N/CCD Import Anion Gap 4 Low 8-16 SerPl-sCnc Calcium 07/06/2019 N2N/CCD Import Calcium Level 8.9 8.5-10.1 SerPl-mCnc Prot 07/06/2019 N2N/CCD Import Total Protein 7.3 6.4-8.2 SerPl-mCnc Albumin 07/06/2019 N2N/CCD Import Albumin 3.6 3.4-5.0 SerPl-mCnc Globulin Ser 07/06/2019 N2N/CCD Import Globulin 3.7 1.9-4.3 Calc-mCnc Albumin/Glob 07/06/2019 N2N/CCD Import Albumin/Globulin 1.0 SerPl Ratio Bilirub 07/06/2019 N2N/CCD Import Total Bilirubin 0.4 0.2-1.0 SerPl-mCnc Ast 07/06/2019 N2N/CCD Import Aspartate Amino 24 15-37 SerPl-cCnc Transf (Ast/Sgot) Alt 07/06/2019 N2N/CCD Import Alanine 26 12-78 SerPl-cCnc Aminotransferase (Alt/SGPT) Alp 07/06/2019 N2N/CCD Import Alkaline 98 45-117 SerPl-cCnc Phosphatase CK SerPl-cCnc 07/06/2019 N2N/CCD Import Total Creatine 220 39-308 Kinase Troponin I 07/06/2019 N2N/CCD Import Troponin I < 0.015 SerPl-mCnc CBC 07/06/2019 [facility] White Blood Count 3.4 K/uL Normal 3.4-10.5 1 W/Automated [address] [place] [address] [phone] Red Blood Count 3.99 M/uL Low 4.20-5.80 Hemoglobin 12.9 gm/dL Normal 12.8-17.0 Hematocrit 37.8 % Low 38.0-48.0 Mean Cell Volume 94.7 fl Normal 80.0-96.0 Mean Corpuscular HGB 32.3 pg Normal 27.0-33.0 Mean Corpuscular HGB Conc 34.1 g/dL Normal 31.7-36.0 Platelet Count 170 K/uL Normal 155-360 Red Cell Distri Width SD 44.2 fl Normal 36-51 Red Cell Distri Width %CV 12.8 % Normal 11.6-15.8 Mean Platelet Volume 9.5 fl Normal 6.6-10.6 Neut% 57.3 % Normal 33.0-73.0 Lymph % 17.4 % Low 20.0-42.0 [place] % 22.4 % High 0.0-10.0 Eo% 1.7 % Normal 0.0-6.6 Bas% 0.6 % Normal 0.0-1.1 Immature Grans 0.6 % Normal 0.0-5.0 NRBC % 0.0 /100WBC < 10/ 100 WBC Neut# 1.97 K/uL Normal 1.8-7.0 Lymph # 0.60 K/uL Low 1.0-4.0 [place] # 0.77 K/uL Normal 0.0-0.8 Eos # 0.06 K/uL Normal 0.0-0.5 Baso # 0.02 K/uL Normal 0.0-0.1 Immature Grans Absolute 0.02 K/uL NRBC # 0.00 K/uL MCV RBC Auto 07/06/2019 N2N/CCD Import Mean Corpuscular 94.7 80.0-96.0 Volume MCH RBC Qn Auto 07/06/2019 N2N/CCD Import Mean Corpuscular 32.3 27.0- 33.0 Hemoglobin MCHC RBC 07/06/2019 N2N/CCD Import Mean Corpuscular 34.1 31.7-36.0 Auto-mCnc Hemoglobin Concent RDW RBC Auto 07/06/2019 N2N/CCD Import Red Cell 44.2 36-51 Distribution Width RDW RBC Auto-Rto 07/06/2019 N2N/CCD Import RDW Coefficient 12.8 11.6- 15.8 of Variation Neutrophils/leuk 07/06/2019 N2N/CCD Import Neutrophils (%) 57.3 33.0- 73.0 NFr Bld Auto (Auto) Lymphocytes/leuk 07/06/2019 N2N/CCD Import Lymphocytes (%) 17.4 Low 20.0- 42.0 NFr Bld Auto (Auto) Monocytes/leuk 07/06/2019 N2N/CCD Import Monocytes (%) 22.4 High 0.0- 10.0 NFr Bld Auto (Auto) Eosinophil/leuk 07/06/2019 N2N/CCD Import Eosinophils (%) 1.7 0.0-6.6 NFr Bld Auto (Auto) Basophils/leuk 07/06/2019 N2N/CCD Import Basophils (%) 0.6 0.0-1.1 NFr Bld Auto (Auto) BUN SerPl-mCnc 07/06/2019 N2N/CCD Import Blood Urea 19 High 7-18 Nitrogen Glucose 07/06/2019 N2N/CCD Import Glucose Screen 115 High 74-106 SerPl-mCnc nRBC # Bld Auto 07/06/2019 N2N/CCD Import Nucleated RBC 0.00 Absolute Count (auto) Imm Granulocytes 07/06/2019 N2N/CCD Import Immature 0.02 # Bld Auto Granulocyte # (Auto) Basophils # Bld 07/06/2019 N2N/CCD Import Basophils # 0.02 0.0-0.1 Auto (Auto) Eosinophil # Bld 07/06/2019 N2N/CCD Import Eosinophils # 0.06 0.0-0.5 Auto (Auto) Monocytes # Bld 07/06/2019 N2N/CCD Import Monocytes # 0.77 0.0-0.8 Auto (Auto) Lymphocytes # 07/06/2019 N2N/CCD Import Lymphocytes # 0.60 Low 1.0-4.0 Bld Auto (Auto) Neutrophils # 07/06/2019 N2N/CCD Import Neutrophils # 1.97 1.8-7.0 Bld Auto (Auto) nRBC/100 WBC Bld 07/06/2019 N2N/CCD Import Nucleated Red 0.0 < 10/ 100 WBC Auto-Rto Blood Cells % (auto) Imm 07/06/2019 N2N/CCD Import Immature 0.6 0.0-5.0 Granulocytes/sergio Granulocyte % k NFr Bld Auto (Auto) 25(Oh)D2+25(Oh)D 06/09/2019 N2N/CCD Import Vitamin D 35.1 30.0-100.0 3 SerPl-mCnc 25-Hydroxy CRP SerPl-mCnc 06/09/2019 N2N/CCD Import C-Reactive 4.3 High <3.0 Protein, Quantitative Esr Bld Qn 06/09/2019 N2N/CCD Import Erythrocyte 32 High 0-20 Westrgrn Sedimentation Rate CBC W/Automated 06/05/2019 [facility] White Blood Count 6.3 K/uL Normal 3.4- 10.5 2 Diff [address] [employer], [place] [id number] [phone] Red Blood Count 4.36 M/uL Normal 4.20-5.80 Hemoglobin 14.2 gm/dL Normal 12.8-17.0 Hematocrit 42.0 % Normal 38.0-48.0 Mean Cell Volume 96.3 fl High 80.0-96.0 Mean Corpuscular HGB 32.6 pg Normal 27.0-33.0 Mean Corpuscular HGB Conc 33.8 g/dL Normal 31.7-36.0 Platelet Count 236 K/uL Normal 155-360 Red Cell Distri Width SD 45.0 fl Normal 36-51 Red Cell Distri Width %CV 12.8 % Normal 11.6-15.8 Mean Platelet Volume 10.2 fl Normal 6.6-10.6 Neut% 68.7 % Normal 33.0-73.0 Lymph % 9.7 % Low 20.0-42.0 [place] % 18.6 % High 0.0-10.0 Eo% 1.1 % Normal 0.0-6.6 Bas% 0.3 % Normal 0.0-1.1 Immature Grans 1.6 % Normal 0.0-5.0 NRBC % 0.0 /100WBC < 10/ 100 WBC Neut# 4.33 K/uL Normal 1.8-7.0 Lymph # 0.61 K/uL Low 1.0-4.0 [place] # 1.17 K/uL High 0.0-0.8 Eos # 0.07 K/uL Normal 0.0-0.5 Baso # 0.02 K/uL Normal 0.0-0.1 Immature Grans Absolute 0.10 K/uL NRBC # 0.00 K/uL Laboratory test 06/05/2019 [facility] D-Dimer, 0.68 ug/mL [address] Quantitative [place], [place] [id number] [phone] [facility] 06/05/2019 N2N/CCD Import Thyroid 0.88 0.30-4 Stimulating .20 Hormone (TSH) 1 HIGH BP [address], MOSTLY LOW,GAS AROUND HEART 3 <=0.49 ug/mL - Low likelihood of DIC, DVT or Pulmonary Embolism >0.49 ug/mL - Additional testing should be done to rule out DIC, DVT, or Pulmonary embolism as clinically indicated. ([facility] has established a 97.89% negative predictive value for thrombotic disease when a cutoff value of 0.5 ug/mL is used.) Procedures Date Code Description Status 08/03/2019 34077 EGD With Biopsy Completed 02/01/2016 92366572 Colonoscopy Completed 07/10/2014 [id number] Colonoscopy Completed 06/20/2009 [id number] Colonoscopy Completed 05/05/2005 [id number] Colonoscopy Completed 06/22/1998 [id number] Colonoscopy Completed Medical Devices Description No Information Available Encounters Type Date Location Provider Dx Diagnosis Office Visit 08/25/2019 GI Robel Poe, K29.70 Gastritis, 8:45a PA unspecified, without bleeding R13.10 Dysphagia, unspecified Office Visit 08/03/2019 Primary Care Kenneth, Z01.818 Encounter for 10:30a Office MD Yonny other preprocedural examination Office Visit 07/15/2019 Primary Care Preeti Napoles, R13.10 Dysphagia, 7:30a Office MS, [employer]LAKING ROLL OPERATOR-C, CNM unspecified I10 Essential (primary) hypertension E78.5 Hyperlipidemia, unspecified 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, stage 2 Office Visit 07/07/2019 10:00a GI Robel Poe, K21.9 Gastro- esophageal reflux PA disease without esophagitis R13.10 Dysphagia, unspecified Office Visit 06/16/2019 11:50a Primary Care Dilip Cooper0 Essential Office MD Yonny (primary) hypertension 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 Office Visit 06/13/2019 3:20p Primary Care Brendan Cooper Essential Office MD Yonny (primary) hypertension E03.9 Hypothyroidism, unspecified Office Visit 03/07/2019 9:45a Primary Care Compagni, E03.9 Hypothyroidism , Office SUMA Brown unspecified I10 Essential (primary) hypertension 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 R12 Heartburn G47.00 Insomnia, unspecified Assessments Date Code Description Provider 08/25/2019 K29.70 Gastritis, unspecified, without Robel Poe PA bleeding 08/25/2019 R13.10 Dysphagia, unspecified Robel Poe PA 08/03/2019 K29.50 Unspecified chronic gastritis Avery Mancini MD without bleeding 08/03/2019 K31.89 Other diseases of stomach and Avery Mancini MD duodenum 08/03/2019 K31.7 Polyp of stomach and duodenum Avery Mancini MD 08/03/2019 K44.9 Diaphragmatic hernia without Avery Mancini MD obstruction or gangrene 08/03/2019 Z79.899 Other intermodal customer service (current) drug Avery Mancini MD therapy 08/03/2019 Z01.818 Encounter for other preprocedural Yonny Cooper MD examination 07/15/2019 R13.10 Dysphagia, unspecified Preeti Napoles, MS, [employer]PERATOR-C, CNM 07/15/2019 I10 Essential (primary) hypertension Preeti Napoles, , [employer] OPERATOR-C , CNM 07/15/2019 E78.5 Hyperlipidemia, unspecified Preeti Napoles, MS, [employer]PERATOR-C, CNM 07/15/2019 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, stage Preeti Napoles, , [employer]KING [employer] OPERATOR-C, 2 CNM 07/07/2019 K21.9 Gastro-esophageal reflux disease Robel Poe, PA without esophagitis 07/07/2019 R13.10 Dysphagia, unspecified Robel Poe PA 06/16/2019 I10 Essential (primary) hypertension Yonny Cooper MD 06/16/2019 L97.429 Non-pressure chronic ulcer of left Yonny Cooper MD heel and midfoot with unspecified severity 06/13/2019 I10 Essential (primary) hypertension Yonny Cooper MD 06/13/2019 E03.9 Hypothyroidism, unspecified Yonny Cooper MD 03/07/2019 E03.9 Hypothyroidism, unspecified Rosina Canseco PA 03/07/2019 I10 Essential (primary) hypertension Rosina Canseco PA 03/07/2019 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 03/07/2019 R12 Heartburn Rosina Canseco PA 03/07/2019 G47.00 Insomnia, unspecified Rosina Canseco PA Plan of Treatment Future Appointment(s):09/08/2019 10:45 am - Robel Poe PA at [facility] - Robel Poe, PAK29.70 Gastritis, unspecified, without bleedingComments:Continue PPIR13.10 Dysphagia, unspecifiedComments:We will order an esophagus try to get this done and forwarded to his ENT and the patient will follow-up with me in the doctor in the office in 2 weeks Functional Status Functional Condition Comment Date Status Glasses Active Independent with all ADL's Active Mental Status Description No Information Available Referrals Description No Information Available
--- OUTSIDE RECORDS SUMMARY | 2019-09-02 10:39 | XMS REPORT | Continuity of Care Document ---
:1940 External Reference #:[id number] Author Name Robel Poe PA Address [address], [address] [place] [address] Care Team Providers Name Role Phone Mitch Aranda MD - Surgery Care Team Information Retail Bakery Manager [phone] Oj Burgos MD - Rheumatology Care Team Information Retail Bakery Manager [phone] Stoney Rodriguez MD - Ophthalmology Care Team Information Retail Bakery Manager [phone] Dago Hansen M.D. - Adult Care Team Information Retail Bakery Manager [phone] Reconstructive Orthopaedic Surgery Casimiro Diego MD - Orthopaedic Care Team Information Retail Bakery Manager Surgery Eliza Mcghee MD - Internal Medicine Care Team Information Retail Bakery Manager Preeti Napoles NP, CNM - Nurse Care Team Information Retail Bakery Manager [phone] Practitioner Berkley Moss DO - Emergency Medicine Care Team Information Retail Bakery Manager [phone] Problems Active Problems Provider Date Gastroesophageal reflux [...] Sherie Cedillo PA-C Onset: 09/03/2015 Note: Dr. 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 Onset: 12/15/2017 Electrocardiogram abnormal Russel Bennett M.D., Onset: 12/22/2018 [facility] Dizziness and giddiness Russel Bennett M.D., Onset: 12/22/2018 [facility] Tobacco user Russel Bennett M.D., Onset: 12/22/2018 [facility] Aneurysm of thoracic aorta Russel Bennett M.D., Onset: 12/22/2018 [facility] Other specified symptoms and signs Russel Bennett M.D., Onset: 2018 involving the circulatory and [facility] respiratory systems Social History Type Date Description Comments Sex Unknown Tobacco Use Start: Unknown Never Smoked Cigarettes ETOH Use Denies alcohol use Tobacco Use Start: Unknown End: Unknown Patient is a former smoker Smoking Status Reviewed: 07/07/19 Patient is a former smoker Allergies, Adverse Reactions, Alerts Active Allergies Reaction Severity Comments Date Ramipril cough Mild 07/21/2013 Fenofibrate 07/21/2013 Trazodone dizziness Moderate 10/04/2015 Medications Active Medications SIG Qnty Indications Ordering Date Provider Omeprazole 1 by mouth every 30caps K21.9 Avery Mancini, 07/07/[address] day 30 minutes MD before Am meals Hydrochlorothiazide 1 by mouth every 90tabs I10 Ratnasingam, 06/13/2019 25mg day ShamanthMD luciana Tablets Lidocaine apply twice a 21gm K62.89 Eliza Mcghee, 06/12/2017 HCL/Hydrocortisone day to MD Acetate hemorrhoids; october 3-0.5% Cream use applicator to apply to anal canal as needed Levothyroxine Sodium 1tab by mouth 90tabs Eliza Mcghee, 01/07/2017 125mcg every day Tablets Metoprolol Tartrate 1 by mouth twice 180tabs I10 Ratnasingam, 100mg a day ShamanthMD luciana Tablets Tramadol HCL 2 tabs by mouth 240tabs Amina Salomon, 50mg Tablets every 6 hours as BEAMER HELPER needed for pain, mdd 8#, Reference #: [id number] Mirtazapine take 1/2 tablet 90tabs Ratnasingjosesito, 15mg Tablets by mouth once Shamanthy, nightly for insomnia Atorvastatin Calcium 1 by mouth every E78.5 Unknown 20mg day Tablets Vitamin D 1 by mouth every Litzy, Eliza, 1000Unit Tablets day Telmisartan TK 1 T PO qd Unknown 80mg Tablets Triamterene/Hydrochloroth TK 1 C PO Q Day Unknown iazide 37.5-25mg Capsules Prednisone TK 2 TS PO qd Unknown 1mg Tablets Leflunomide 1 by mouth every Unknown 20mg Tablets day History Medications Cialis take one tablet 30tabs Litzy, Eliza, 05/09/2019 - 5mg Tablets before sexual 06/13/2019 activity. effect may last up to 36 hr. Proair Respiclick take one or two 1units I10 Litzy, Eliza, 01/14/2019 - puffs every 4-6 MD 03/07/2019 108(90Base) mcg/Act hours as needed for Aerosol sob Immunizations CPT Code Status Date Vaccine Lot # [id number] Given 03/22/2018 Influenza High Dose Q2038 Given 03/20/2016 Influenza Vaccine (Fluzone) Age 3 And Older 46729 Given 06/26/2015 Pneumococcal Conjugate Vaccine 13 Valent For [id number] Intramuscular Use 38824 Given 03/19/2015 Influenza High Dose 09331 Given 11/25/2014 Tdap injection [id number] U-Pneum Given 01/24/2014 Pneumococcal,Unspecified U-Pneum Given 06/22/2005 Pneumococcal,Unspecified U-Td Given 06/22/2004 Td(Adult),Unspecified Vital Signs Date Vital Result Comment 07/07/2019 10:43am BP Systolic 140 mmHg BP Diastolic 67 mmHg Body Temperature 97.4 F Heart Rate 66 /min Respiratory Rate 16 /min Height 71 inches 5'11" per pt Weight 174.00 lb Pain Level 0 BMI (Body Mass Index) 24.3 kg/m2 BSA (Body Surface Area) 1.99 m2 [place] body weight in kilograms 78 kg O2 % BldC Oximetry 97 % 07/06/2019 8:38pm Weight 170.00 lb Results Test Acquired Facility Test Result H/L Range Note Date Creat 07/06/2019 N2N/CCD Import Creatinine 1.4 High 0.6-1.3 SerPl-mCnc GFR/Bsa 07/06/2019 N2N/CCD Import Estimated GFR 52 >60 pred.non (Non- black SerPl [place] MDRD-ArVRat GFR/Bsa 07/06/2019 N2N/CCD Import Estimated GFR [...] 3.4-10.5 1 W/Automated [address] [place] [address] [phone] Red Blood Count 3.99 M/uL Low 4.20-5.80 [...] 33.0-73.0 Lymph % 17.4 % Low 20.0-42.0 [place] % 22.4 % High 0.0-10.0 Eo% 1.7 % Normal 0.0-6.6 Bas% 0.6 % Normal 0.0-1.1 Immature Grans 0.6 % Normal 0.0-5.0 NRBC % 0.0 /100WBC < 10/ 100 WBC Neut# 1.97 K/uL Normal 1.8-7.0 Lymph # 0.60 K/uL Low 1.0-4.0 [place] # 0.77 K/uL Normal 0.0-0.8 Eos # [...] (%) 0.6 0.0-1.1 NFr Bld Auto (Auto) Imm 07/06/2019 N2N/CCD Import Immature 0.6 0.0-5.0 Granulocytes/sergio Granulocyte % k NFr Bld Auto (Auto) nRBC/100 WBC Bld 07/06/2019 N2N/CCD Import Nucleated Red 0.0 < 10/ 100 WBC Auto-Rto Blood Cells % (auto) Neutrophils # 07/06/2019 N2N/CCD Import Neutrophils # 1.97 1.8-7.0 Bld Auto (Auto) Lymphocytes # 07/06/2019 N2N/CCD Import Lymphocytes # 0.60 Low 1.0-4.0 Bld Auto (Auto) Monocytes # Bld 07/06/2019 N2N/CCD Import Monocytes # 0.77 0.0-0.8 Auto (Auto) Eosinophil # Bld 07/06/2019 N2N/CCD Import Eosinophils # 0.06 0.0-0.5 Auto (Auto) Basophils # Bld 07/06/2019 N2N/CCD Import Basophils # 0.02 0.0-0.1 Auto (Auto) Imm Granulocytes 07/06/2019 N2N/CCD Import Immature 0.02 # Bld Auto Granulocyte # (Auto) nRBC # Bld Auto 07/06/2019 N2N/CCD Import Nucleated RBC 0.00 Absolute Count (auto) Glucose 07/06/2019 N2N/CCD Import Glucose Screen 115 High 74-106 SerPl-mCnc BUN SerPl-mCnc 07/06/2019 N2N/CCD Import Blood Urea 19 High 7-18 Nitrogen Esr Bld Qn 06/09/2019 N2N/CCD Import Erythrocyte 32 High 0-20 Westrgrn Sedimentation Rate CRP SerPl-mCnc 06/09/2019 N2N/CCD Import C-Reactive 4.3 High <3.0 Protein, Quantitative 25(Oh)D2+25(Oh)D 06/09/2019 N2N/CCD Import Vitamin D 35.1 30.0-100.0 3 [facility] 25-Hydroxy CBC W/Automated 06/05/2019 [facility] White Blood Count 6.3 K/uL Normal 3.4- 10.5 2 Diff [address] [place] [address] [phone] Red Blood Count 4.36 M/uL Normal 4.20-5.80 [...] 33.0-73.0 Lymph % 9.7 % Low 20.0-42.0 [place] % 18.6 % High 0.0-10.0 Eo% 1.1 % Normal 0.0-6.6 Bas% 0.3 % Normal 0.0-1.1 Immature Grans 1.6 % Normal 0.0-5.0 NRBC % 0.0 /100WBC < 10/ 100 WBC Neut# 4.33 K/uL Normal 1.8-7.0 Lymph # 0.61 K/uL Low 1.0-4.0 [place] # 1.17 K/uL High 0.0-0.8 Eos # 0.07 K/uL Normal 0.0-0.5 Baso # 0.02 K/uL Normal 0.0-0.1 Immature Grans Absolute 0.10 K/uL NRBC # 0.00 K/uL Laboratory test 06/05/2019 [facility] D-Dimer, 0.68 ug/mL [address] [place] [address] [phone] TSH SerPl-[facility] 06/05/2019 N2N/CCD Import Thyroid 0.88 0.30 Stimulating -4.2 Hormone (TSH) 0 TSH Reflex FT4 02/14/2019 [facility] Thyroid Stim 1.86 Normal 0.30 4 And/Or FT3 [address] Hormone uIU/mL -4.2 [place] [address] 0 [phone] Reflex add FT3? Y Reflex add FT4? Y 1 HIGH BP [address], MOSTLY LOW,GAS AROUND HEART 3 <=0.49 ug/mL - Low likelihood of DIC, DVT or Pulmonary Embolism >0.49 ug/mL - Additional testing should be done to rule out DIC, DVT, or Pulmonary embolism as clinically indicated. ([facility] has established a 97.89% negative predictive value for thrombotic disease when a cutoff value of 0.5 ug/mL is used.) 4 E03.9 Procedures Date Code Description Status 01/07/2019 35945 Echocardiogram Complete Completed 02/01/2016 [id number] Colonoscopy Completed 07/10/2014 [id number] Colonoscopy Completed 06/20/2009 [id number] Colonoscopy Completed 05/05/2005 [id number] Colonoscopy Completed 06/22/1998 [id number] Colonoscopy Completed Medical Devices Description No Information Available Encounters Type Date Location Provider Dx Diagnosis Office Visit 07/07/2019 GI Robel Poe, K21.9 Gastro-esophageal 10:00a PA reflux disease without esophagitis R13.10 Dysphagia, unspecified Office Visit 06/16/2019 11:50a Primary Care Kenneth I10 Essential Office MD Yonny (primary) hypertension 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 Office Visit 06/13/2019 3:20p Primary Care Dilip Cooper0 Essential Office MD Yonny (primary) hypertension E03.9 Hypothyroidism, unspecified Office Visit 03/07/2019 9:45a Primary Care Harleen, E03.9 Hypothyroidism , Office SUMA Brown unspecified I10 Essential (primary) hypertension 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 R12 Heartburn G47.00 Insomnia, unspecified Office Visit 01/31/2019 7:20a Cardiology Office Russel Bennett I10 Essential Mikala Astorga, [facility] (primary) hypertension R42 Dizziness and giddiness E03.9 Hypothyroidism, unspecified J44.9 Chronic obstructive pulmonary disease, unspecified I71.2 Thoracic aortic aneurysm, without rupture Office Visit 01/14/2019 9:00a Primary Care Preeti Napoles, I10 Essential (primary) Office MS, BEAMER HELPER-C, CNM hypertension R42 Dizziness and giddiness E55.9 Vitamin D deficiency, unspecified E03.9 Hypothyroidism, unspecified 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 E78.5 Hyperlipidemia, unspecified J44.9 Chronic obstructive pulmonary disease, unspecified Assessments Date Code Description Provider 07/07/2019 K21.9 Gastro-esophageal reflux disease Robel Poe PA without esophagitis 07/07/2019 R13.10 Dysphagia, unspecified [...] 03/07/2019 G47.00 Insomnia, unspecified Rosina Canseco PA 01/31/2019 I10 Essential (primary) hypertension Russel Bennett M.D., [facility] 01/31/2019 R42 Dizziness and giddiness Russel Bennett M.D., [facility] 01/31/2019 E03.9 Hypothyroidism, unspecified Russel Bennett M.D., [facility] 01/31/2019 J44.9 Chronic obstructive pulmonary Russel Bennett M.D., [facility] disease, unspecified 01/31/2019 I71.2 Thoracic aortic aneurysm, without Russel Bennett M.D. , [facility] rupture 01/14/2019 I10 Essential (primary) hypertension ShannanenPreeti, MS, BEAMER HELPER-C , [facility] 01/14/2019 R42 Dizziness and giddiness Gagen, Preeti, MS, BEAMER HELPER-C, [facility] 01/14/2019 E55.9 Vitamin D deficiency, unspecified Gagen, Preeti, MS, BEAMER HELPER-C, [facility] 01/14/2019 E03.9 Hypothyroidism, unspecified Gagen, Preeti, MS, BEAMER HELPER-C, [facility] 01/14/2019 M05.60 Rheumatoid arthritis of unspecified Gagen, Preeti, MS , BEAMER HELPER-C, site with involvement of [facility] 01/14/2019 E78.5 Hyperlipidemia, unspecified Gagen, Preeti, MS, BEAMER HELPER-C, [facility] 01/14/2019 J44.9 Chronic obstructive pulmonary Gagen, Preeti, MS, BEAMER HELPER-C, disease, unspecified [facility] 01/07/2019 I71.2 Thoracic aortic aneurysm, without Kenn Hardwick MD rupture Plan of Treatment Future Appointment(s):08/03/2019 2:40 pm - Avery Mancini MD at Operating Room08/25/2019 8:45 am - Robel Poe PA at GI09/05/2019 7:30 am - Yonny Cooper MD at Primary Care Jpgurg0707/07/2019 - Robel Poe , PAK21.9 Gastro-esophageal reflux disease without esophagitisNew Medication: Omeprazole 40 mg - 1 by mouth every day 30 minutes before Am mealsComments: Review of omeprazole dosing. I mean to have him take 40 mg once a day 30 minutes before spurs to meal of the day.R13.10 Dysphagia, unspecifiedComments: Reviewed the role of endoscopy. Risks and benefits reviewed. Risks including but not limited to infection definite perforation.Patient is scheduled for endoscopy and will be seen in postop to review results Functional Status Functional Condition Comment Date Status Glasses Active Independent with all ADL's Active Mental Status Description No Information Available Referrals Description No Information Available
--- OUTSIDE RECORDS SUMMARY | 2019-09-02 10:39 | XMS REPORT | Continuity of Care Document ---
:1940 External Reference #:[id number] Author Name Yonny Cooper MD Address [address] [place] [address] Care Team Providers Name Role Phone Mitch Aranda MD - Surgery Care Team Information Solvent Plant Operator [phone] Oj Burgos MD - Rheumatology Care Team Information Solvent Plant Operator Stoney Rodriguez MD - Ophthalmology Care Team Information Solvent Plant Operator [phone] Dago Hansen M.D. - Adult Care Team Information Solvent Plant Operator [phone] Reconstructive Orthopaedic Surgery Casimiro Diego MD - Orthopaedic Care Team Information Solvent Plant Operator Surgery Preeti Napoles, OCTAVIO, CNM - Nurse Care Team Information Solvent Plant Operator [phone] Practitioner Berkley Moss DO - Emergency Medicine Care Team Information Solvent Plant Operator Problems Active Problems Provider Date Gastroesophageal reflux [...] Cedillo PA-C Onset: 09/03[facility]2015 [facility] Chronic kidney disease Sherie Cedillo [...] Mcghee MD Onset: 09/02/2017 [facility] Onset: 10/14/2017 Spinal stenosis of lumbar region Seven Ramirez M.D. Onset: 12/15/2017 Electrocardiogram abnormal Russel Bennett M.D., Onset: 12/22/2018 [facility] Dizziness and giddiness Russel Bennett M.D., Onset: 12/22/2018 [facility] Tobacco user Russel Bennett M.D., Onset: 12/22/2018 [facility] Aneurysm of thoracic aorta Russel Bennett M.D., Onset: 12/22/2018 [facility] Other specified symptoms and signs Russel Bennett M.D., Onset: 2018 involving the circulatory and [facility] respiratory systems Social History Type Date Description Comments Sex Unknown Tobacco Use Start: Unknown Never Smoked Cigarettes ETOH Use Denies alcohol use Tobacco Use Start: Unknown End: Unknown Patient is a former smoker Smoking Status Reviewed: 08/03/19 Patient is a former smoker Allergies, Adverse [...] HCL 2 tabs by mouth 240tabs Ratnasingam, 00/00/000 50mg Tablets every 6 hours as Shamanthy, MD 0 needed for pain, mdd 8#, Reference # [id number] Mirtazapine take 1/2 tablet by 90tabs Ratnasingam, [...] CPT Code Status Date Vaccine Lot # [id number] Given 03/22/2018 Influenza High Dose Q2038 Given 03/20/2016 Influenza Vaccine (Fluzone) Age 3 And Older 17693 Given 06/26/2015 Pneumococcal Conjugate Vaccine 13 Valent For [id number] Intramuscular Use 00166 Given 03/19/2015 Influenza High Dose 80301 Given 11/25/2014 Tdap injection [id number] U-Pneum Given 01/24/2014 Pneumococcal,Unspecified U-Pneum Given 06/22/2005 Pneumococcal,Unspecified U-Td Given 06/22/2004 Td(Adult),Unspecified Vital Signs Date Vital Result Comment 08/03/2019 10:33am BP Systolic Sitting Left Arm 118 mmHg BP Diastolic Sitting Left Arm 70 mmHg Body Temperature 98.6 F Heart Rate 72 /min Respiratory Rate 24 /min Height 71 inches 5'11" Weight 170.00 lb BMI (Body Mass Index) 23.7 kg/m2 BSA (Body Surface Area) 1.97 m2 [place] body weight in kilograms 78 kg O2 % BldC Oximetry 98 % ra 07/15/2019 7:36am BP Systolic Sitting Left Arm 146 mmHg BP Diastolic Sitting Left Arm 80 mmHg Body Temperature 97.7 F Heart Rate 67 /min Respiratory Rate 18 /min Height 71 inches 5'11" per pt Weight 175.00 lb BMI (Body Mass Index) 24.4 kg/m2 BSA (Body Surface Area) 1.99 m2 Alpha body weight in kilograms 78 kg O2 % BldC Oximetry 97 % Ra Results Test Acquired Facility Test Result H/L Range Note Date Creat 07/06/2019 N2N/CCD Import Creatinine 1.4 High 0.6-1.3 SerPl-mCnc GFR/Bsa 07/06/2019 N2N/CCD Import Estimated GFR 52 >60 pred.non (Non- black SerPl [place] MDRD-ArVRat GFR/Bsa 07/06/2019 N2N/CCD Import Estimated GFR [...] 3.4-10.5 1 W/Automated [address] [place] [address] [phone] Red Blood Count 3.99 M/uL Low 4.20-5.80 [...] 33.0-73.0 Lymph % 17.4 % Low 20.0-42.0 [place] % 22.4 % High 0.0-10.0 Eo% 1.7 % Normal 0.0-6.6 Bas% 0.6 % Normal 0.0-1.1 Immature Grans 0.6 % Normal 0.0-5.0 NRBC % 0.0 /100WBC < 10/ 100 WBC Neut# 1.97 K/uL Normal 1.8-7.0 Lymph # 0.60 K/uL Low 1.0-4.0 [place] # 0.77 K/uL Normal 0.0-0.8 Eos # [...] 0-20 Westrgrn Sedimentation Rate CBC [facility] White Blood Count 6.3 K/uL Normal 3.4- 10.5 2 Diff [address] [place] [address] [phone] Red Blood Count 4.36 M/uL Normal 4.20-5.80 [...] 33.0-73.0 Lymph % 9.7 % Low 20.0-42.0 [place] % 18.6 % High 0.0-10.0 Eo% 1.1 % Normal 0.0-6.6 Bas% 0.3 % Normal 0.0-1.1 Immature Grans 1.6 % Normal 0.0-5.0 NRBC % 0.0 /100WBC < 10/ 100 WBC Neut# 4.33 K/uL Normal 1.8-7.0 Lymph # 0.61 K/uL Low 1.0-4.0 [place] # 1.17 K/uL High 0.0-0.8 Eos # 0.07 K/uL Normal 0.0-0.5 Baso # 0.02 K/uL Normal 0.0-0.1 Immature Grans Absolute 0.10 K/uL NRBC # 0.00 K/uL Laboratory test 06/05/2019 [facility] D-Dimer, 0.68 ug/mL [address] [place] [address] [phone] TSH SerPl-[facility] 06/05/2019 N2N/CCD Import Thyroid 0.88 0.30 Stimulating -4.2 Hormone (TSH) 0 TSH Reflex FT4 02/14/2019 [facility] Thyroid Stim 1.86 Normal 0.30 4 And/Or FT3 [address] Hormone uIU/mL -4.2 [place] [address] 0 [phone] Reflex add FT3? Y Reflex add FT4? Y 1 HIGH BP [address], MOSTLY LOW,GAS AROUND HEART 3 <=0.49 ug/mL - Low likelihood of DIC, DVT or Pulmonary Embolism >0.49 ug/mL - Additional testing should be done to rule out DIC, DVT, or Pulmonary embolism as clinically indicated. ([facility] has established a 97.89% negative predictive value for thrombotic disease when a cutoff value of 0.5 ug/mL is used.) 4 E03.9 Procedures Date Code Description Status 02/01/2016 [id number] Colonoscopy Completed 07/10/2014 [id number] Colonoscopy Completed 06/20/2009 [id number] Colonoscopy Completed 05/05/2005 [id number] Colonoscopy Completed 06/22/1998 [id number] Colonoscopy Completed Medical Devices Description No Information Available Encounters Type Date Location Provider Dx Diagnosis Office Visit 07/15/2019 Primary Care Gagen, R13.10 Dysphagia, 7:30a Office Preeti, MS, unspecified STAFFING ANALYST-C, CNM I10 Essential (primary) hypertension E78.5 Hyperlipidemia, unspecified [...] Insomnia, unspecified Assessments Date Code Description Provider 08/03/2019 Z01.818 Encounter for other preprocedural Yonny Cooper MD examination 07/15/2019 R13.10 Dysphagia, unspecified Gagjose luis, Preeti, MS, STAFFING ANALYST-C, CNM 07/15/2019 I10 Essential (primary) hypertension Dony, Preeti, MS, STAFFING ANALYST-C , CNM 07/15/2019 E78.5 Hyperlipidemia, unspecified Gagen, Preeti, MS, STAFFING ANALYST-C, CNM 07/15/2019 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, stage Gagjose luis, Preeti, MS , STAFFING ANALYST-C, 2 CNM 07/07/2019 K21.9 Gastro-esophageal reflux disease Robel Poe, PA without esophagitis 07/07/2019 R13.10 Dysphagia, unspecified Robel Poe, PA 06/16/2019 I10 Essential (primary) hypertension Yonny [...] Rosina Canseco PA Plan of Treatment Future Appointment(s):08/26/2019 7:30 am - Preeti Napoles MS, STAFFING ANALYST-C, CNM at Primary Care Omjpvo6808/25/2019 8:45 am - Robel Poe PA at GI2019 7:30 am - Yonny Cooper MD at Primary Care [id number]/03/2019 - Yonny Cooper MDZ01.818 Encounter for other preprocedural examination Functional Status Functional Condition Comment Date Status Glasses Active Independent with all ADL's Active Mental Status Description No Information Available Referrals Description No Information Available
--- OUTSIDE RECORDS SUMMARY | 2019-09-02 10:39 | XMS REPORT | Continuity of Care Document ---
:1940 External Reference #:[id number] Author Name Robel Poe PA (transmitted by agent of provider Mena Su ) Address [address], [address] [place] [address] Care Team Providers Name Role Phone Mitch Aranda MD - Surgery Care Team Information [place] [phone] Oj Burgos MD - Rheumatology Care Team Information [place] [phone] Stoney Rodriguez MD - Ophthalmology Care Team Information [facility] Dago Hansen M.D. - Adult Care Team Information [place] [phone] Reconstructive Orthopaedic Surgery Casimiro Diego MD - Orthopaedic Care Team Information [place] [facility] Surgery Preeti Napoles NP, CNM - Nurse Care Team Information [place] Practitioner Berkley Moss DO - Emergency Medicine Care Team Information [place] Bert Spencer ENT Care Team Information [place] [phone] Problems Active Problems Provider Date Gastroesophageal reflux [...] PA-C Onset: 09/03/2015 Note: Dr. Banks (cardiology, [place]) Echo 2016 Chronic kidney disease Sherie Cedillo [...] Mcghee MD Onset: 09/02/2017 [facility]on [facility]set: 10/14/2017 Spinal stenosis of lumbar region Seven Ramirez M.D. Onset: 12/15/2017 Electrocardiogram abnormal Russel Bennett M.D., Onset: 12/22/2018 [facility] Dizziness and giddiness Russel Bennett M.D., Onset: 12/22/2018 [facility] Tobacco user Russel Bennett M.D., Onset: 12/22/2018 [facility] Aneurysm of thoracic aorta Russel Bennett M.D., Onset: 12/22/2018 [facility] Other specified symptoms and signs Russel Bennett M.D., Onset: 2018 involving the circulatory and [facility] respiratory systems Social History Type Date [...] needed for pain, mdd 8#, Reference # [id number] Mirtazapine take 1/2 tablet by 90tabs [place], [...] CPT Code Status Date Vaccine Lot # [id number] Given 03/22/2018 Influenza High Dose [id number] Given 03/20/2016 Influenza Vaccine (Fluzone) Age 3 And Older 53985 Given 06/26/2015 Pneumococcal Conjugate Vaccine 13 Valent For [id number] Intramuscular Use 12387 Given 03/19/2015 Influenza High Dose 22182 Given 11/25/2014 Tdap injection [id number] U-Pneum Given 01/24/2014 Pneumococcal,Unspecified U-Pneum Given 06/22/2005 [...] kg/m2 BSA (Body Surface Area) 1.98 m2 [place] body weight in kilograms 78 kg O2 % BldC Oximetry 96 % 08/03/2019 10:33am BP Systolic Sitting Left Arm 118 mmHg BP Diastolic Sitting Left Arm 70 mmHg Body Temperature 98.6 F Heart Rate 72 /min Respiratory Rate 24 /min Height 71 inches 5'11" Weight 170.00 lb BMI (Body Mass Index) 23.7 kg/m2 BSA (Body Surface Area) 1.97 m2 [place] body weight in kilograms 78 kg O2 % BldC Oximetry 98 % ra Results Test Acquired Facility Test Result H/L Range Note Date Creat 07/06/2019 N2N/CCD Import Creatinine 1.4 High 0.6-1.3 SerPl-mCnc GFR/Bsa 07/06/2019 N2N/CCD Import Estimated GFR 52 >60 pred.non (Non- black SerPl [place] MDRD-ArVRat GFR/Bsa 07/06/2019 N2N/CCD Import Estimated GFR [...] 3.4-10.5 1 W/Automated [address] [place] [address] [phone] Red Blood Count 3.99 M/uL Low 4.20-5.80 [...] 33.0-73.0 Lymph % 17.4 % Low 20.0-42.0 [place] % 22.4 % High 0.0-10.0 Eo% 1.7 % Normal 0.0-6.6 Bas% 0.6 % Normal 0.0-1.1 Immature Grans 0.6 % Normal 0.0-5.0 NRBC % 0.0 /100WBC < 10/ 100 WBC Neut# 1.97 K/uL Normal 1.8-7.0 Lymph # 0.60 K/uL Low 1.0-4.0 [place] # 0.77 K/uL Normal 0.0-0.8 Eos # [...] 0-20 [place] Sedimentation Rate CBC W/Automated 06/05/2019 [facility] White Blood Count 6.3 K/uL Normal 3.4- 10.5 2 Diff [address] [place], [place] [id number] [phone] Red Blood Count 4.36 M/uL Normal 4.20-5.80 [...] 33.0-73.0 Lymph % 9.7 % Low 20.0-42.0 [place] % 18.6 % High 0.0-10.0 Eo% 1.1 % Normal 0.0-6.6 Bas% 0.3 % Normal 0.0-1.1 Immature Grans 1.6 % Normal 0.0-5.0 NRBC % 0.0 /100WBC < 10/ 100 WBC Neut# 4.33 K/uL Normal 1.8-7.0 Lymph # 0.61 K/uL Low 1.0-4.0 [place] # 1.17 K/uL High 0.0-0.8 Eos # 0.07 K/uL Normal 0.0-0.5 Baso # 0.02 K/uL Normal 0.0-0.1 Immature Grans Absolute 0.10 K/uL NRBC # 0.00 K/uL Laboratory test 06/05/2019 [facility] D-Dimer, 0.68 ug/mL [address] [place] [address] [phone] TSH [facility] 06/05/2019 N2N/CCD Import Thyroid 0.88 0.30-4 Stimulating .20 Hormone (TSH) 1 HIGH BP [address], MOSTLY LOW,GAS AROUND HEART 3 <=0.49 ug/mL - Low likelihood of DIC, DVT or Pulmonary Embolism >0.49 ug/mL - Additional testing should be done to rule out DIC, DVT, or Pulmonary embolism as clinically indicated. ([facility] has established a 97.89% negative predictive value for thrombotic disease when a cutoff value of 0.5 ug/mL is used.) Procedures Date Code Description Status 08/03/2019 63120 EGD With Biopsy Completed 02/01/2016 38425605 Colonoscopy Completed 07/10/2014 [id number] Colonoscopy Completed 06/20/2009 [id number] Colonoscopy Completed 05/05/2005 [id number] Colonoscopy Completed 06/22/1998 [id number] Colonoscopy Completed Medical Devices Description No Information Available Encounters Type Date Location Provider Dx Diagnosis Office Visit 08/03/2019 Primary Care Maddie Cooper.818 Encounter for other 10:30a Office MD Yonny preprocedural examination Office Visit 07/15/2019 Primary Care Dony, R13.10 Dysphagia, 7:30a Office MS Preeti, unspecified SOLE MOLDER-C, CNM I10 Essential (primary) hypertension E78.5 Hyperlipidemia, unspecified 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, stage 2 Office Visit 07/07/2019 10:00a GI Robel Poe, K21.9 Gastro- esophageal reflux PA disease without esophagitis R13.10 Dysphagia, unspecified Office Visit 06/16/2019 11:50a Primary Care Kenneth, I10 Essential Office MD Yonny (primary) hypertension [...] Provider 08/25/2019 K29.70 Gastritis, unspecified, without Robel Peo PA bleeding 08/25/2019 R13.10 Dysphagia, unspecified Robel Poe PA 08/03/2019 K29.50 Unspecified chronic gastritis Avery Mancini MD without bleeding 08/03/2019 K31.89 Other diseases of stomach and Avery Mancini MD duodenum 08/03/2019 K31.7 Polyp of stomach and duodenum Avery Mancini MD 08/03/2019 K44.9 Diaphragmatic hernia without Avery Mancini MD obstruction or gangrene 08/03/2019 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 Avery Mancini MD therapy 08/03/2019 Z01.818 Encounter for other preprocedural Yonny Cooper MD examination 07/15/2019 R13.10 Dysphagia, unspecified Preeti Napoles MS, SOLE MOLDERLouie, CNM 07/15/2019 I10 Essential (primary) hypertension Preeti Napoles, , SOLE MOLDER-C , CNM 07/15/2019 E78.5 Hyperlipidemia, unspecified Preeti Napoles MS, SOLE MOLDER-C, CNM 07/15/2019 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, stage Preeti Napoles, , SOLE MOLDER-C, 2 CNM 07/07/2019 K21.9 Gastro-esophageal reflux disease [...] unspecified Rosina Canseco PA Plan of Treatment 08/25/2019 - Robel Poe, PAK29.70 Gastritis, unspecified, without [id number] Dysphagia, unspecifiedNew Xrays:Esophogram, Ordered: 08/25/19 Functional Status Functional Condition Comment Date Status Glasses Active Independent with all ADL's Active Mental Status Description No Information Available Referrals Description No Information Available
== END 2019-09-02 11:00 | disposition left against medical advice (07) ==
LOC: UCCORT 10:07
DX: R55 Syncope and collapse (principal); I10 Essential (primary) hypertension; N40.0 Benign prostatic hyperplasia without lower urinary tract symptoms; Z79.899 Other long term (current) drug therapy; Z87.891 Personal history of nicotine dependence; D38.0 Neoplasm of uncertain behavior of larynx; E04.1 Nontoxic single thyroid nodule
CPT/HCPCS: 93005; 99212; G0463